=== PATIENT | female | born 1925 | race Caucasian/White ===

== ENCOUNTER 2017-04-14 15:33 | Inpatient (IN) | payer BC, MEDICARE, OTHER ==
[~2017-04-14] VITALS: Ht 165.1 cm; Wt 54.3 kg
[2017-04-14] MEDS ORDERED: SOD CHLORIDE 0.9% 500 ML IV STA (15:57)
[2017-04-14 16:25] LABS: ADD SCAN DIFF NO
[2017-04-14 16:29] LABS: ABNORMAL IP MESSAGE 1; HEMATOCRIT 36.2 % (37.0-47.0); HEMOGLOBIN 11.7 g/dl (12.0-16.0); MEAN CORPUSCULAR HEMOGLOBIN 28.7 pg (29.0-33.0); MEAN CORPUSCULAR HGB CONC 32.3 g/dl (32.0-37.0); MEAN CORPUSCULAR VOLUME 88.9 fl (82.0-101.0); MEAN PLATELET VOLUME 10.2 fl (7.4-10.4); PLATELET COUNT 304 10^3/UL (140-415); RED BLOOD COUNT 4.07 10^6/ul (4.20-5.40); RED CELL DISTRIBUTION WIDTH 15.9 % (11.5-14.5); WHITE BLOOD COUNT 22.4 10^3/ul (4.8-10.8)
--- NOTE | 2017-04-14 16:38 | RADRPT ---
PROCEDURE: CT Head without contrast. CLINICAL INDICATION: Altered mental status TECHNIQUE: Continuous axial CT images were obtained from the base of skull to the vertex. No cont rast was administered. The calculated radiation dose measures 720 mGy centimeters. The CTDI measures 45 mGy COMPARISON: No prior studies are available for comparison. FINDINGS: There is moderate diffuse cerebral volume loss. The ventricles are symmetric and normal in configur ation. There is no abnormal intra-axial or extra-axial fluid collection. There is no evidence of intracranial hemorrhage. There is a small focal area of dural thickening along the left anterior fa lx, measuring 10 mm CC by 4 mm transverse, with associated calcification. There are scattered areas of decreased attenuation in the supratentorial white matter, consistent wi th moderate small vessel ischemic changes. There is moderate atherosclerotic vascular calcification. The bony calvarium is intact. The orbital soft tissue contents are unremarkable. Paranasal sinuses appear clear. IMPRESSION: 1. Moderate age related cerebral volume loss. Moderate small vessel ischemic changes. 2. Moderate atherosclerotic vascular calcification. 3. Small focal dural thickening along the left anterior falx, 10 x 4 mm, which may reflect a small meningioma. 4. No mass effect or acute intracranial bleed identified. RPTAT: HBST .Manjit Ling MD, MD Date Time Electronically viewed and signed by .Manjit Ling MD, on 04/14/2017 16:37 .T/
--- NOTE | 2017-04-14 16:41 | RADRPT ---
PROCEDURE: XR Chest. CLINICAL INDICATION: 89-year-old with chest pain and possible GI bleed. TECHNIQUE: Single frontal view of the chest was obtained. COMPARISON: No. FINDINGS: The soft tissues are normal. There are degenerative osteophytes in the thoracic and upper lumbar sp ine. There are clips around the trachea at the thoracic inlet. The left ventricle is enlarged. Th e cardiomediastinal silhouette and hilar structures are normal. The pulmonary vasculature is equilib rated. There are vascular calcifications in the aortic arch. There are infiltrates and atelectasis in the left lower lobe silhouetting the left diaphragm. The left pleural effusion is suspected. Th e right costophrenic angle is normal. IMPRESSION: 1. Consolidative infiltrate and atelectasis in the left lower lobe with probable associated left ple ural effusion. 2. Status post thyroidectomy. 3. Atherosclerotic vascular disease. 4. Spondylosis of the thoracic spine. RPTAT:AAJJ Physician Leena Date Time Electronically viewed and signed by Maik Bello Physician on 04/14/2017 16:40 JEWEL/
[2017-04-14 16:48] LABS: INR 1.16; PROTIME 14.8 Sec (12.2-14.2); PT RATIO 1.2
[2017-04-14 16:49] LABS: PARTIAL THROMBOPLASTIN TIME 29.7 Sec (25.0-35.0)
[2017-04-14 16:52] LABS: ALBUMIN 4.2 g/dl (3.3-4.9); ALBUMIN/GLOBULIN RATIO 1.44; BILIRUBIN,INDIRECT 0.7 mg/dl (0-1.1); BILIRUBIN,TOTAL 0.7 mg/dl (0.2-1.3); CREATININE 2.3 mg/dl (0.44-1.00); TOTAL PROTEIN 7.1 g/dl (6.1-8.1)
[2017-04-14 17:09] LABS: TROPONIN-I 0.142 ng/ml (0.00-0.12)
[2017-04-14] MEDS ORDERED: FER325 PO (17:13)
[2017-04-14] MEDS ORDERED: MIRT30TA5 PO (17:13)
[2017-04-14] MEDS ORDERED: SENN-53 PO (17:14)
[2017-04-14] MEDS ORDERED: AMIO100T4 PO (17:14)
[2017-04-14] MEDS ORDERED: METF500T4 PO (17:15)
[2017-04-14] MEDS ORDERED: DONE10TA7 PO (17:15)
[2017-04-14] MEDS ORDERED: FURO20TA3 PO (17:15)
[2017-04-14] MEDS ORDERED: LEVO125T75 PO (17:16)
[2017-04-14] MEDS ORDERED: PRED5 PO (17:16)
[2017-04-14] MEDS ORDERED: SODIUM CHLORIDE 0.9% 1L BAG IV* STA ×2 (17:49→19:16)
[2017-04-14] MEDS ORDERED: CEFEPIME 2GM/50 ML (PMX) 50 ML IVPB STA (17:49)
[2017-04-14] MEDS ORDERED: VANCOMYCIN 1 GM (PMX) 250 ML IVPB STA (17:49)
[2017-04-14] MEDS ORDERED: ENOXAPARIN 40 MG/0.4 ML SYG SC ONE (18:00)
[2017-04-14 18:42] LABS: INR 1.16; PROTIME 14.8 Sec (12.2-14.2); PT RATIO 1.2
[2017-04-14 18:43] LABS: PARTIAL THROMBOPLASTIN TIME 31.3 Sec (25.0-35.0)
[2017-04-14 18:59] LABS: ADD UMIC YES; URINE BILIRUBIN (Dip) NEGATIVE (NEGATIVE); URINE BLOOD (Dip) 3+ (NEGATIVE); URINE GLUCOSE (Dip) NEGATIVE (NEGATIVE); URINE KETONES (Dip) NEGATIVE (NEGATIVE); URINE LEUKOCYTE ESTERASE (Dip) 3+ (NEGATIVE); URINE NITRITE (Dip) NEGATIVE (NEGATIVE); URINE TOTAL PROTEIN (Dip) 2+ (NEGATIVE); URINE UROBILINOGEN (Dip) 0.2 E.U./dL (0.1-1.0)
[2017-04-14] MEDS ORDERED: ACETAMINOPHEN 650 MG SUPP PR ONE (19:00)
[2017-04-14 19:10] LABS: URINE COLOR YELLOW (YELLOW)
[2017-04-14 19:15] LABS: BACTERIA,URINE MODERATE; TRANSITIONAL EPI CELLS,URINE MODERATE
--- NOTE | 2017-04-14 19:23 | ERA ---
ER Documentation Chief Complaint Date/Time DATE: 04/14/17 TIME: 19:17 Chief Complaint MORE ALETERD THAN NORMAL HPI This is a 89-year-old female who resides in a detention with very severe dementia according to the family who is here. The patient was seen here due to decreased level of consciousness. The patient is typically awake and alert and can watch TV and can talk to you. Apparently her mental status is a client over the period of 1 day is no other history is given such as she has had a fever cough vomiting diarrhea or other. On arrival the patient is in no acute distress she is not conversive. The patient is a DNR ROS All systems reviewed and are negative except as per history of present illness. Medications Home Meds Reported Medications Levothyroxine Sodium* (Levothyroxine Sodium*) 125 Mcg Tablet, 125 MCG PO BEFORE BREAKFAST, #30 TAB 04/14/17 Prednisone* (Prednisone*) 5 Mg Tab, 5 MG PO DAILY, TAB 04/14/17 Furosemide* (Furosemide*) 20 Mg Tablet, 20 MG PO DAILY, #60 TAB 04/14/17 Donepezil* (Donepezil*) 10 Mg Tablet, 10 MG PO DAILY, #30 TAB 04/14/17 Metformin Hcl* (Metformin Hcl*) 500 Mg Tablet, 500 MG PO WITH BREAKFAST DINNE, # 60 TAB 04/14/17 Sennosides* (Senna Lax*) 8.6 Mg Tablet, 2 TAB PO BID, TAB 04/14/17 Amiodarone Hcl* (Amiodarone Hcl*) 100 Mg Tablet, 100 MG PO BID, #30 TAB 04/14/17 Mirtazapine* (Mirtazapine*) 30 Mg Tablet, 30 MG PO DAILY, TAB 04/14/17 Ferrous Sulfate* (Ferrous Sulfate*) 325 Mg Tabec, 325 MG PO TID, TAB 04/14/17 Allergies Allergies: Coded Allergies: Penicillins (Unverified Allergy, Unknown, 04/14/17) Sulfa (Sulfonamide Antibiotics) (Unverified Allergy, Unknown, 04/14/17) PMhx/Soc Hx Cardiac Disorders: Yes (HTN, NE) Hx Miscellaneous Medical Probl: Yes (DM, THYROID, breast cancer) Smoking Status: Former smoker FmHx Unable to obtain due to mental status Physical Exam Vitals Vital Signs Date Time Temp Pulse Resp B/P Pulse Ox O2 Delivery O2 Flow Rate FiO2 04/14/17 18:43 101.6 95 24 109/80 95 Room Air 04/14/17 17:43 101.2 95 18 102/67 97 Room Air 04/14/17 16:06 Nasal Cannula 2 04/14/17 15:49 98.9 102 19 107/62 97 Physical Exam Const: Well-developed, well-nourished Head: Atraumatic, normocephalic Eyes: Normal Conjunctiva, PERRLA, EOMI, normal sclera, no nystagmus ENT: Normal External Ears, Nose and Mouth, moist mucus membranes. Neck: Full range of motion. No meningismus, no lymphadenopathy. Resp: Clear to auscultation bilaterally, no wheezing, rhonchi, rales Cardio: Regular rate and rhythm, no murmurs, S1 S2 present Abd: Soft, non tender x 4, non distended. Normal bowel sounds, no guarding or rebound, no pulsitile abdominal masses or bruits Skin: No petechiae or rashes, no ecchymosis , no maculopapular rash Back: No midline or flank tenderness Ext: No cyanosis, or edema, FROM x 4, normal inspection, neurovascularly intact x 4 Neur: Awake and alert eyes open and will look at you but will not talk will not follow commands Psych: Unable to assess] Result Diagram: 04/14/17 1605 04/14/17 1605 Results 24 hrs Laboratory Tests Test 04/14/17 16:05 04/14/17 17:55 04/14/17 18:19 White Blood Count 22.410^3/ul Red Blood Count 4.0710^6/ul Hemoglobin 11.7g/dl Hematocrit 36.2% Mean Corpuscular Volume 88.9fl Mean Corpuscular Hemoglobin 28.7pg Mean Corpuscular Hemoglobin Concent 32.3g/dl Red Cell Distribution Width 15.9% Platelet Count 16042^3/UL Mean Platelet Volume 10.2fl Neutrophils % 91.0% Band Neutrophils % 6.0% Lymphocytes % 2.0% Monocytes % 1.0% Neutrophils # 20.410^3/ul Lymphocytes # 0.410^3/ul Monocytes # 0.210^3/ul Prothrombin Time 14.8Sec 14.8Sec Prothrombin Time Ratio 1.2 1.2 INR International Normalized Ratio 1.16 1.16 Activated Partial Thromboplast Time 29.7Sec 31.3Sec Sodium Level 140mmol/L Potassium Level 4.0mmol/L Chloride Level 105mmol/L Carbon Dioxide Level 20mmol/L Anion Gap 19 Blood Urea Nitrogen 39mg/dl Creatinine 2.30mg/dl Glucose Level 171mg/dl Calcium Level 9.0mg/dl Total Bilirubin 0.7mg/dl Direct Bilirubin 0.00mg/dl Indirect Bilirubin 0.7mg/dl Aspartate Amino Transf (AST/SGOT) 50IU/L Alanine Aminotransferase (ALT/SGPT) 50IU/L Alkaline Phosphatase 143IU/L Troponin I 0.142ng/ml Total Protein 7.1g/dl Albumin 4.2g/dl Globulin 2.90g/dl Albumin/Globulin Ratio 1.44 Lactic Acid Level 3.3mmol/L Urine Color YELLOW Urine Clarity CLOUDY Urine pH 5.5 Urine Specific [place] 1.025 Urine Ketones NEGATIVE Urine Nitrite NEGATIVE Urine Bilirubin NEGATIVE Urine Urobilinogen 0.2 E.U./dL Urine Leukocyte Esterase 3+ Urine Microscopic RBC 5-10/HPF Urine Microscopic WBC >200/HPF Urine Transitional Epithelial Cells MODERATE Urine Bacteria MODERATE Urine Hemoglobin 3+ Urine Glucose NEGATIVE% Urine Total Protein 2+ Current Medications Medications (Trade) Dose Ordered Sig/Higinio Route PRN Reason Start Time Stop Time Status Last Admin Dose Admin Sodium Chloride (NS) 500 ml @ 500 mls/hr Q1H STAT IV 04/14/17 15:57 04/14/17 16:56 DC 04/14/17 17:16 Enoxaparin Sodium (Lovenox) 50 mg ONCE ONCE SC 04/14/17 18:00 04/14/17 18:01 DC 04/14/17 18:03 Sodium Chloride 1710 ml 1,710 ml BOLUS OVER 2 HOURS STAT IV* 04/14/17 17:49 04/14/17 17:52 DC 04/14/17 18:22 Vancomycin HCl 250 ml @ 125 mls/hr ONCE STAT IVPB 04/14/17 17:49 04/14/17 19:48 DC 04/14/17 19:00 Cefepime HCl (Maxipime 2gm/50 ml (Pmx)) 50 ml @ 100 mls/hr ONCE STAT IVPB 04/14/17 17:49 04/14/17 18:18 DC 04/14/17 18:21 Acetaminophen (Tylenol Supp) 650 mg ONCE ONCE MI 04/14/17 19:00 04/14/17 19:01 DC 04/14/17 19:00 Sodium Chloride (NS) 1,710 ml BOLUS OVER 2 HOURS STAT IV* 04/14/17 19:16 04/14/17 19:25 DC 04/14/17 20:11 Procedures/MDM PROCEDURE: CT Head without contrast. CLINICAL INDICATION: Altered mental status TECHNIQUE: Continuous axial CT images were obtained from the base of skull to the vertex. No contrast was administered. The calculated radiation dose measures 720 mGy centimeters. The CTDI measures 45 mGy COMPARISON: No prior studies are available for comparison. FINDINGS: There is moderate diffuse cerebral volume loss. The ventricles are symmetric and normal in configuration. There is no abnormal intra-axial or extra-axial fluid collection. There is no evidence of intracranial hemorrhage. There is a small focal area of dural thickening along the left anterior falx, measuring 10 mm CC by 4 mm transverse, with associated calcification. There are scattered areas of decreased attenuation in the supratentorial white matter, consistent with moderate small vessel ischemic changes. There is moderate atherosclerotic vascular calcification. The bony calvarium is intact. The orbital soft tissue contents are unremarkable. Paranasal sinuses appear clear. IMPRESSION: 1. Moderate age related cerebral volume loss. Moderate small vessel ischemic changes. 2. Moderate atherosclerotic vascular calcification. 3. Small focal dural thickening along the left anterior falx, 10 x 4 mm, which may reflect a small meningioma. 4. No mass effect or acute intracranial bleed identified. RPTAT: HBST .Manjit Ling MD, Date Time Electronically viewed and signed by .Manjit Ling MD, MD on 04/14/2017 16:37 .T/ CC: GISEL SEE DO PROCEDURE: XR Chest. CLINICAL INDICATION: 89-year-old with chest pain and possible GI bleed. TECHNIQUE: Single frontal view of the chest was obtained. COMPARISON: No. FINDINGS: The soft tissues are normal. There are degenerative osteophytes in the thoracic and upper lumbar spine. There are clips around the trachea at the thoracic inlet. The left ventricle is enlarged. The cardiomediastinal silhouette and hilar structures are normal. The pulmonary vasculature is equilibrated. There are vascular calcifications in the aortic arch. There are infiltrates and atelectasis in the left lower lobe silhouetting the left diaphragm. The left pleural effusion is suspected. The right costophrenic angle is normal. IMPRESSION: 1. Consolidative infiltrate and atelectasis in the left lower lobe with probable associated left pleural effusion. 2. Status post thyroidectomy. 3. Atherosclerotic vascular disease. 4. Spondylosis of the thoracic spine. RPTAT:AAJJ Physician Leena Date Time Electronically viewed and signed by Physician Leena on 04/14/2017 16:40 JM/ CC: GISEL SEE DO EKG: Rate/Rhythm: Normal sinus rhythm with PACs, left axis deviation, inverted T waves in lead I and aVL QRS, ST, QT: NORMAL MI, QRS, QT] Impression: Abnormal Admit MDM: Patient's infectious symptoms have not stabilized and the patient is at risk of rapid decompensation. The patient will be admitted for careful hydration, antibiotic therapy, and infectious source control. Severe Sepsis criteria: Infectious source: Pneumonia End organ damage indicated by: Elevated lactate Lactate > 2.0 mmol/L Hypotension (SBP < 90 or >40 mmHG drop or MAP < 65) Acute Resp Failure (sat < 92% w/o oxygen) Hazmat Tanker Driver > 2.0 INR > 1.5 Plt < 100 Bili > 2 Sepsis Management: Time of recognition of severe sepsis/septic shock: 1914 Within 3 hours of recognition: Blood cultures x 2 before broad-spectrum antibiotics: Yes 30 ml/kg NS bolus completed Initial lactate 3.3 Repeat lactate pending at this time Accepting Care Team Current data and ongoing care discussed. Time: Admitting Physician: Josesito Folding Machine Tender(s): Outstanding Data: None Critical Care Time: 35 Minutes Treatments/Evaluations: Close monitoring and treatment of unstable vital signs, cardiorespiratory, and neurologic status, while maintaining tight balance of fluid, respiratory, and cardiac interventions. This includes the administration of emergency fluid management while maintaining close respiratory support as well as the provision of immediate and broad-spectrum antibiotic therapy, while performing a simultaneous assessment for possible sources in order to direct targeted therapy. This time includes discussing the case with the patient and the patient's family. This time also includes the consideration for invasive and chemical support to prevent cardiopulmonary collapse. This time does not include all procedures stated elsewhere in this record. This time also includes reviewing old records, labs and radiological studies. This time includes examining and re-examining the patient. Additionally, this time also includes arranging care with admitting and consulting physicians. Patient is DNR and I did speak with the power of divorce attorney here and she also informing the patient is not to get blood pressure support, no heroic measures no intubation no CPR no defibrillation and is to be let go peacefully if her blood pressure does decline Departure Diagnosis: Primary Impression: Sepsis Qualified Code: A41.9 - Sepsis, due to unspecified organism Additional Impression: Pneumonia Qualified Code: J18.1 - Pneumonia of left lower lobe due to infectious organism Condition: GISEL Castellano DO Apr 14, 2017 19:23
[2017-04-14 19:58] LABS: LYMPHOCYTES # 0.4 10^3/ul (0.8-2.9); MONOCYTE # 0.2 10^3/ul (0.3-0.9); NEUTROPHIL # 20.4 10^3/ul (1.6-7.5)
[2017-04-14] MEDS ORDERED: SOD CHLORIDE 0.9% 1,000 ML IV SCH ×2 (20:29→20:33)
[2017-04-14] MEDS ORDERED: ONDANSETRON 4 MG INJ IV PRN ×2 (20:30→21:00)
[2017-04-14] MEDS ORDERED: NACL 0.9% 3 ML SYG IV SCH (20:30)
[2017-04-14] MEDS ORDERED: ACETAMINOPHEN 325 MG TAB PO PRN ×2 (20:30→21:00)
[2017-04-14] MEDS ORDERED: VANCOMYCIN IV PER PHARMACY XX SCH (21:00)
[2017-04-14 22:27] VITALS: TEMP 98.8
[2017-04-14 22:42] LABS: CK-MB 0.58 ng/ml (0.0-2.4); TROPONIN-I 0.128 ng/ml (0.00-0.12)
[2017-04-14 22:45] VITALS: BP 143/73; PULSE 81; RESP 16
[2017-04-14] MEDS: HEPARIN 5,000 UNIT/0.5 ML VIAL SC SCH (23:46)
[2017-04-15] VITALS (11 sets, daily range): BP systolic 119–176; BP diastolic 59–117; PULSE 63–83; RESP 15–20; Ht 165.1 cm; Wt 54.3 kg
--- NOTE | 2017-04-15 00:37 | HP ---
Date/Time of Note Date/Time of Note DATE: 04/15/17 TIME: 00:37 Assessment/Plan VTE Prophylaxis VTE Prophylaxis Intervention: heparin Assessment/Plan Chief Complaint/Hosp Course This is a 89-year-old female being admitted to the telemetry floor for: #1 severe sepsis: Fever of 101.6, respirations of 24, white blood cell count of 22 and 6% bands, lactic acid 3.8 and a source of infection of pneumonia and urinary tract infection. Will provide IV hydration pressure support. Broad- spectrum antibiotics of Vanco and cefepime. Though the patient is a DNR, at the present time would like to keep her in telemetry for closer observation and monitoring. #2 Community-acquired pneumonia: Patient does live in a assisted which could make her susceptible to plethora pathogens. Continue current broad- spectrum antibiotic coverage. Will adjust medications as clinically indicated. I would like to avoid fluoroquinolones at this time secondary to her cardiac history and risk of tendinopathy in the elderly. #3 urinary tract infection: Urinalysis shows positive leukoesterase, currently on broad-spectrum antibiotics. #4 renal insufficiency: Most likely chronic however there are not any previous creatinine values to compare to. Patient's creatinine clearance calculated is approximately 14. Will renally dose the antibiotics. Provide IV fluid hydration. #5 elevated troponins: EKG does not show any overt ST or T-wave abnormalities, patient denies any chest pain at this time. This could be possibly related to demand versus underlying kidney disease. We will continue to monitor. #6 diabetes mellitus: We will hold home medications put on insulin sliding scale. #7 hypothyroidism: Continue home Synthroid #8 Suspected history of arrhythmia: Continue amiodarone #9 dementia: Continue donepezil #10 DVT and GI prophylaxis: Heparin, Protonix As per the ED physician and documentation, power of commercial litigation attorney for the patient did confirm patient's DNR CODE STATUS. Patient also is to not be on any artificial blood pressure support should the need arise. Please see ED documentation for further information. Problems: HPI/ROS Admit Date/Time Admit Date/Time Apr 14, 2017 at 20:34 Hx of Present Illness If complaint: decline in mental status. This is a 89-year-old female who resides in a assisted with very severe dementia according to the family who is here. The patient was seen here due to decreased level of consciousness. The patient is typically awake and alert and can watch TV and can talk to you. Apparently her mental status has declined over the period of 1 day is no other history is given such as she has had a fever cough vomiting diarrhea or other. On arrival the patient is in no acute distress she is not conversive. The patient is a DNR. Allergies: Penicillins, sulfa Medications: See MAR ROS Subjective hx not possible: pt non-verbal, pt critical PMH/Family/Social Past Medical History Hypertension, diabetes mellitus, thyroid disease, history of breast cancer, history of past PR Past Surgical History Past Surgical Hx: noncontributory, other (Unable to provide) Family History Significant Family History: no pertinent family hx Social History Alcohol Use: none Smoking Status: Former smoker Drug Use: none Exam/Review of Systems Vital Signs Vitals Vital Signs Date Time Temp Pulse Resp B/P Pulse Ox O2 Delivery O2 Flow Rate FiO2 04/15/17 00:00 78 04/14/17 22:45 16 143/73 97 Room Air 04/14/17 22:27 98.8 04/14/17 16:06 2 Exam Exam General: Patient is asleep she appears well-developed does not appear in any acute distress HEENT: Atraumatic, normocephalic. The pupils are equal, round and reactive. Neck: Supple with full range of motion. No rigidity or meningismus Chest: Nontender Lungs: Coarse breath sounds at the lower left lung field Heart: Normal S1-S2, Regular rhythm and rate. Abdomen: Soft , nontender, nondistended , bowel sounds are present. No guarding no rebound tenderness , Extremities: Normal to inspection, no edema no cyanosis Neurologic: Awake and alert eyes open and will look at you but will not talk, will not follow commands. Additional Comments PROCEDURE: CT Head without contrast. CLINICAL INDICATION: Altered mental status TECHNIQUE: Continuous axial CT images were obtained from the base of skull to the vertex. No contrast was administered. The calculated radiation dose measures 720 mGy centimeters. The CTDI measures 45 mGy COMPARISON: No prior studies are available for comparison. FINDINGS: There is moderate diffuse cerebral volume loss. The ventricles are symmetric and normal in configuration. There is no abnormal intra-axial or extra-axial fluid collection. There is no evidence of intracranial hemorrhage. There is a small focal area of dural thickening along the left anterior falx, measuring 10 mm CC by 4 mm transverse, with associated calcification. There are scattered areas of decreased attenuation in the supratentorial white matter, consistent with moderate small vessel ischemic changes. There is moderate atherosclerotic vascular calcification. The bony calvarium is intact. The orbital soft tissue contents are unremarkable. Paranasal sinuses appear clear. IMPRESSION: 1. Moderate age related cerebral volume loss. Moderate small vessel ischemic changes. 2. Moderate atherosclerotic vascular calcification. 3. Small focal dural thickening along the left anterior falx, 10 x 4 mm, which may reflect a small meningioma. 4. No mass effect or acute intracranial bleed identified. RPTAT: HBST .Manjit Ling MD, Date Time Electronically viewed and signed by .Manjit Ling MD, on 04/14/2017 16:37 .T/ CC: GISEL SEE DO PROCEDURE: XR Chest. CLINICAL INDICATION: 89-year-old with chest pain and possible GI bleed. TECHNIQUE: Single frontal view of the chest was obtained. COMPARISON: No. FINDINGS: The soft tissues are normal. There are degenerative osteophytes in the thoracic and upper lumbar spine. There are clips around the trachea at the thoracic inlet. The left ventricle is enlarged. The cardiomediastinal silhouette and hilar structures are normal. The pulmonary vasculature is equilibrated. There are vascular calcifications in the aortic arch. There are infiltrates and atelectasis in the left lower lobe silhouetting the left diaphragm. The left pleural effusion is suspected. The right costophrenic angle is normal. IMPRESSION: 1. Consolidative infiltrate and atelectasis in the left lower lobe with probable associated left pleural effusion. 2. Status post thyroidectomy. 3. Atherosclerotic vascular disease. 4. Spondylosis of the thoracic spine. RPTAT:AAJJ Physician Leena Date Time Electronically viewed and signed by Physician Leena on 04/14/2017 16:40 JM/ CC: GISEL ESE DO EKG: Rate/Rhythm: Normal sinus rhythm with PACs, left axis deviation, inverted T waves in lead I and aVL QRS, ST, QT: NORMAL [place], QRS, QT] As per ED physician documentation Labs Result Diagram: 04/14/17 1605 04/14/17 1605 Medications Medications Current Medications Sodium Chloride (NS) 1,000 ml @ 60 mls/hr [id number] IV Last administered on 23:42; Admin Dose 60 MLS/HR; Start 04/14/17 at 20:29 Ondansetron HCl (Zofran Inj) 4 mg Q6H PRN IV NAUSEA AND/OR VOMITING; Start 04/14 at 20:30 Acetaminophen (Tylenol Tab) 650 mg Q6H PRN PO PAIN LEVEL 1-3 OR FEVER; Start at 20:30 Pantoprazole (Protonix Iv) 40 mg DAILY@06 IV ; Start 04/15/17 at 06:00 Heparin Sodium (Porcine) (Heparin (5000 Units/0.5 ml)) 5,000 unit Q8 SC Last administered on 04/14/17 23:46; Admin Dose 5,000 UNIT; Start 04/14/17 at 22:00 YAHAIRA CLAROS Apr 15, 2017 00:37
[2017-04-15] MEDS ORDERED: PANTOPRAZOLE 40 MG INJ IV SCH (06:00)
[2017-04-15] MEDS: LEVOTHYROXINE 125 MCG TAB PO SCH (06:19)
[2017-04-15] MEDS: HEPARIN 5,000 UNIT/0.5 ML VIAL SC SCH ×3 (06:26→21:27)
[2017-04-15 06:44] LABS: ADD SCAN DIFF NO
[2017-04-15 06:59] LABS: ABNORMAL IP MESSAGE 1; BASOPHILS % 0.1 % (0.0-2.0); EOSINOPHILS % 0.1 % (0.0-7.0); HEMATOCRIT 28.8 % (37.0-47.0); HEMOGLOBIN 9.2 g/dl (12.0-16.0); LYMPHOCYTES # 0.5 10^3/ul (0.8-2.9); LYMPHOCYTES % 3.3 % (15.0-51.0); MEAN CORPUSCULAR HEMOGLOBIN 28.5 pg (29.0-33.0); MEAN CORPUSCULAR HGB CONC 31.9 g/dl (32.0-37.0); MEAN CORPUSCULAR VOLUME 89.2 fl (82.0-101.0); MEAN PLATELET VOLUME 10.2 fl (7.4-10.4); MONOCYTE # 0.5 10^3/ul (0.3-0.9); MONOCYTES % 3.2 % (0.0-11.0); NEUTROPHIL # 15.2 10^3/ul (1.6-7.5); NEUTROPHILS % 92.4 % (39.0-77.0); PLATELET COUNT 227 10^3/UL (140-415); RED BLOOD COUNT 3.23 10^6/ul (4.20-5.40); RED CELL DISTRIBUTION WIDTH 15.7 % (11.5-14.5); WHITE BLOOD COUNT 16.4 10^3/ul (4.8-10.8)
[2017-04-15] MEDS ORDERED: GLUCOSE GEL 15 GRAM TUBE BUCCAL PRN (07:00)
[2017-04-15] MEDS ORDERED: GLUCAGON 1 MG INJ IM PRN (07:00)
[2017-04-15] MEDS ORDERED: DEXTROSE 50% 50 ML SYRINGE IV PRN ×2 (07:00)
[2017-04-15] MEDS ORDERED: GLUCOSE GEL 15 GRAM TUBE PO PRN ×2 (07:00)
[2017-04-15 07:16] LABS: ALBUMIN 3.1 g/dl (3.3-4.9); ALBUMIN/GLOBULIN RATIO 1.24; BILIRUBIN,INDIRECT 0.4 mg/dl (0-1.1); BILIRUBIN,TOTAL 0.4 mg/dl (0.2-1.3); CALCIUM 7.8 mg/dl (8.4-10.2); CREATININE 2.15 mg/dl (0.44-1.00); POTASSIUM 3.8 mmol/L (3.5-5.1); TOTAL PROTEIN 5.6 g/dl (6.1-8.1)
[2017-04-15] MEDS: INSULIN ASPART [NOVOLOG] 3 ML PEN SC SCH ×4 (07:55→21:00)
[2017-04-15 08:42] LABS: CK-MB 1.13 ng/ml (0.0-2.4); TROPONIN-I 0.123 ng/ml (0.00-0.12)
[2017-04-15] MEDS: predniSONE 5 MG TAB PO SCH (09:00)
[2017-04-15] MEDS: AMIODARONE 200 MG TAB PO SCH ×2 (09:00→21:21)
[2017-04-15] MEDS: FERROUS SULFATE (EC) 325 MG TAB PO SCH ×3 (09:00→21:21)
[2017-04-15] MEDS: MIRTAZAPINE 15 MG TAB PO SCH (09:00)
[2017-04-15] MEDS: DONEPEZIL 10 MG TAB PO SCH (09:00)
[2017-04-15] MEDS: SENNA TAB PO SCH ×2 (09:00→21:20)
[2017-04-15 09:56] LABS: BURR CELLS OCCASIONAL; POIKILOCYTOSIS 1+
--- NOTE | 2017-04-15 11:23 | PN ---
Date/Time of Note Date/Time of Note DATE: 04/15/17 TIME: 11:23 Assessment/Plan VTE Prophylaxis VTE Prophylaxis Intervention: SCD's Lines/Catheters Urinary Cath still in place: Yes Reason Cath still needed: other (indicate) Assessment/Plan Assessment/Plan 89 yo F with DM, hypothyroid, facility resident admitted for AMS 2/2 severe sepsis. #sepsis: source lung v urine cont ceftriaxone/azithro pending further culture data urine/blood cultures in process check sputum culture check urine strep Ag #NSTEMI: elevated trop 2/2 demand, already downtrending consider cardiology involvement prior to discharge #acute renal insufficiency: suspect prenreal 2/2 sepsis cont IVFs #DM2: hold home meds, SSI #hypothyroid: cont synthroid #h/o arrhythmia? cont home amio #dementia: cont donezepil #prophx: SCDs discontinue becerril Subjective 24 Hr Interval Summary Free Text/Dictation Pt asking where she is this AM Exam/Review of Systems Vital Signs Vitals Vital Signs Date Time Temp Pulse Resp B/P Pulse Ox O2 Delivery O2 Flow Rate FiO2 04/15/17 08:48 83 04/15/17 08:30 2.0 04/15/17 08:00 99.3 16 122/59 97 04/14/17 22:45 Room Air Intake and Output 04/14/17 04/14/17 04/15/17 15:00 23:00 07:00 Output Total 200 ml Balance -200 ml Exam nad lungs clear no mrg abd soft becerril draining yellow urine no le edema Results Result Diagram: 04/15/17 0600 04/15/17 0600 Results 24 hrs Laboratory Tests Test 04/14/17 16:05 04/14/17 17:55 04/14/17 18:19 04/14/17 21:30 White Blood Count 22.4 H Red Blood Count 4.07 L Hemoglobin 11.7 L Hematocrit 36.2 L Mean Corpuscular Volume 88.9 Mean Corpuscular Hemoglobin 28.7 L Mean Corpuscular Hemoglobin Concent 32.3 Red Cell Distribution Width 15.9 H Platelet Count 304 Mean Platelet Volume 10.2 Neutrophils % 91.0 H Band Neutrophils % 6.0 H Lymphocytes % 2.0 L Monocytes % 1.0 Neutrophils # 20.4 H Lymphocytes # 0.4 L Monocytes # 0.2 L Prothrombin Time 14.8 H 14.8 H Prothrombin Time Ratio 1.2 1.2 INR International Normalized Ratio 1.16 1.16 Activated Partial Thromboplast Time 29.7 31.3 Sodium Level 140 Potassium Level 4.0 Chloride Level 105 Carbon Dioxide Level 20 L Anion Gap 19 H Blood Urea Nitrogen 39 H Creatinine 2.30 H Glucose Level 171 Calcium Level 9.0 Total Bilirubin 0.7 Direct Bilirubin 0.00 Indirect Bilirubin 0.7 Aspartate Amino Transf (AST/SGOT) 50 H Alanine Aminotransferase (ALT/SGPT) 50 Alkaline Phosphatase 143 H Troponin I 0.142 *H 0.128 *H Total Protein 7.1 Albumin 4.2 Globulin 2.90 Albumin/Globulin Ratio 1.44 Lactic Acid Level 3.3 H 1.9 Urine Color YELLOW Urine Clarity CLOUDY Urine pH 5.5 Urine Specific [place] 1.025 Urine Ketones NEGATIVE Urine Nitrite NEGATIVE Urine Bilirubin NEGATIVE Urine Urobilinogen 0.2 E.U./dL Urine Leukocyte Esterase 3+ H Urine Microscopic RBC 5-10 Urine Microscopic WBC >200 Urine Transitional Epithelial Cells MODERATE Urine Bacteria MODERATE Urine Hemoglobin 3+ H Urine Glucose NEGATIVE Urine Total Protein 2+ H Creatine Kinase 40 Creatine Kinase Index 1.5 Creatinine Kinase MB (Mass) 0.58 Test 04/15/17 05:00 04/15/17 06:00 04/15/17 08:48 Creatine Kinase 52 Creatine Kinase Index 2.2 Creatinine Kinase MB (Mass) 1.13 Troponin I 0.123 *H White Blood Count 16.4 #H Red Blood Count 3.23 #L Hemoglobin 9.2 #L Hematocrit 28.8 #L Mean Corpuscular Volume 89.2 Mean Corpuscular Hemoglobin 28.5 L Mean Corpuscular Hemoglobin Concent 31.9 L Red Cell Distribution Width 15.7 H Platelet Count 227 # Mean Platelet Volume 10.2 Neutrophils % 92.4 H Lymphocytes % 3.3 L Monocytes % 3.2 Eosinophils % 0.1 Basophils % 0.1 Nucleated Red Blood Cells % 0.0 Neutrophils # 15.2 H Lymphocytes # 0.5 L Monocytes # 0.5 Eosinophils # 0.0 Basophils # 0.0 Nucleated Red Blood Cells # 0.0 Poikilocytosis 1+ Sodium Level 139 Potassium Level 3.8 Chloride Level 111 H Carbon Dioxide Level 20 L Anion Gap 12 # Blood Urea Nitrogen 37 H Creatinine 2.15 H Glucose Level 120 # Calcium Level 7.8 L Total Bilirubin 0.4 Direct Bilirubin 0.00 Indirect Bilirubin 0.4 Aspartate Amino Transf (AST/SGOT) 32 Alanine Aminotransferase (ALT/SGPT) 41 Alkaline Phosphatase 109 Total Protein 5.6 #L Albumin 3.1 #L Globulin 2.50 Albumin/Globulin Ratio 1.24 Bedside Glucose 149 Medications Medications Current Medications Sodium Chloride (NS) 1,000 ml @ 60 mls/hr [id number] IV Last administered on 23:42; Admin Dose 60 MLS/HR; Start 04/14/17 at 20:29 Ondansetron HCl (Zofran Inj) 4 mg Q6H PRN IV NAUSEA AND/OR VOMITING; Start 04/14 at 20:30 Acetaminophen (Tylenol Tab) 650 mg Q6H PRN PO PAIN LEVEL 1-3 OR FEVER; Start at 20:30 Pantoprazole (Protonix Iv) 40 mg DAILY@06 IV Last administered on 04/15/17 06: 49; Admin Dose 40 MG; Start 04/15/17 at 06:00 Heparin Sodium (Porcine) (Heparin (5000 Units/0.5 ml)) 5,000 unit Q8 SC Last administered on 04/15/17 06:26; Admin Dose 5,000 UNIT; Start 04/14/17 at 22:00 Amiodarone HCl (Cordarone) 100 mg BID PO ; Start 04/15/17 at 09:00 Donepezil HCl (Aricept) 10 mg DAILY PO ; Start 04/15/17 at 09:00 Ferrous Sulfate (Ferrous Sulfate (Ec)) 325 mg TID PO ; Start 04/15/17 at 09:00 Mirtazapine (Remeron) 30 mg DAILY PO ; Start 04/15/17 at 09:00 Prednisone (Prednisone) 5 mg DAILY PO ; Start 04/15/17 at 09:00 Senna (Senokot) 2 tab BID PO ; Start 04/15/17 at 09:00 Diagnostic Test (Pha) (Accu-Chek) 1 ea 02 XX ; Start 04/16/17 at 02:00 Miscellaneous Information 1 ea NOTE XX ; Start 04/15/17 at 07:00 Glucose (Glutose) 15 gm Q15M PRN PO DECREASED GLUCOSE; Start 04/15/17 at 07:00 Glucose (Glutose) 22.5 gm Q15M PRN PO DECREASED GLUCOSE; Start 04/15/17 at 07:00 Dextrose (D50w Syringe) 25 ml Q15M PRN IV DECREASED GLUCOSE; Start 04/15/17 at 07:00 Dextrose (D50w Syringe) 50 ml Q15M PRN IV DECREASED GLUCOSE; Start 04/15/17 at 07:00 Glucagon (Glucagen) 1 mg Q15M PRN IM DECREASED GLUCOSE; Start 04/15/17 at 07:00 Glucose (Glutose) 15 gm Q15M PRN BUCCAL DECREASED GLUCOSE; Start 04/15/17 at 07: 00 BRIDGETTE RICH MD Apr 15, 2017 11:23
[2017-04-15] MEDS ORDERED: AZITHROMYCIN 250 MG TAB PO ONE (11:30)
[2017-04-15] MEDS ORDERED: CEFTRIAXONE 2 GM/50 ML (PMX) 50 ML IVPB SCH (13:00)
[2017-04-15] MEDS: SOD CHLORIDE 0.9% 1,000 ML IV SCH (13:10)
[2017-04-16] VITALS (12 sets, daily range): BP systolic 118–140; BP diastolic 62–77; PULSE 62–69; RESP 15–20
[2017-04-16] MEDS: ACCU-CHEK XX SCH (00:01)
[2017-04-16] MEDS: SOD CHLORIDE 0.9% 1,000 ML IV SCH ×3 (01:28→18:00)
[2017-04-16] MEDS: HEPARIN 5,000 UNIT/0.5 ML VIAL SC SCH ×3 (06:07→22:19)
[2017-04-16] MEDS: LEVOTHYROXINE 125 MCG TAB PO SCH (07:00)
[2017-04-16 07:12] LABS: ADD SCAN DIFF NO
[2017-04-16 07:15] LABS: ABNORMAL IP MESSAGE 1; HEMATOCRIT 26.2 % (37.0-47.0); HEMOGLOBIN 8.3 g/dl (12.0-16.0); MEAN CORPUSCULAR HEMOGLOBIN 28.4 pg (29.0-33.0); MEAN CORPUSCULAR HGB CONC 31.7 g/dl (32.0-37.0); MEAN CORPUSCULAR VOLUME 89.7 fl (82.0-101.0); MEAN PLATELET VOLUME 10.4 fl (7.4-10.4); PLATELET COUNT 190 10^3/UL (140-415); RED BLOOD COUNT 2.92 10^6/ul (4.20-5.40); RED CELL DISTRIBUTION WIDTH 15.9 % (11.5-14.5); WHITE BLOOD COUNT 11.2 10^3/ul (4.8-10.8)
[2017-04-16 07:43] LABS: CALCIUM 7.6 mg/dl (8.4-10.2); CREATININE 1.73 mg/dl (0.44-1.00); POTASSIUM 3.6 mmol/L (3.5-5.1)
[2017-04-16] MEDS: INSULIN ASPART [NOVOLOG] 3 ML PEN SC SCH ×4 (07:55→21:00)
[2017-04-16] MEDS: AMIODARONE 200 MG TAB PO SCH ×2 (09:00→22:18)
[2017-04-16] MEDS: DONEPEZIL 10 MG TAB PO SCH (09:00)
[2017-04-16] MEDS ORDERED: AZITHROMYCIN 250 MG TAB PO SCH (09:00)
[2017-04-16] MEDS: MIRTAZAPINE 15 MG TAB PO SCH (09:00)
[2017-04-16] MEDS: predniSONE 5 MG TAB PO SCH (09:00)
[2017-04-16] MEDS: FERROUS SULFATE (EC) 325 MG TAB PO SCH ×3 (09:00→22:17)
[2017-04-16] MEDS: SENNA TAB PO SCH ×2 (09:00→22:17)
[2017-04-16 09:10] LABS: MONOCYTE # 0.2 10^3/ul (0.3-0.9); NEUTROPHIL # 10.2 10^3/ul (1.6-7.5)
[2017-04-16 09:11] LABS: PLATELET ESTIMATE PLT APPEAR ADEQUATE
--- NOTE | 2017-04-16 12:58 | PN ---
Date/Time of Note Date/Time of Note DATE: 04/16/17 TIME: 12:58 Assessment/Plan VTE Prophylaxis VTE Prophylaxis Intervention: SCD's Lines/Catheters IV Catheter Type (from Nrsg): Peripheral IV Urinary Cath still in place: No Assessment/Plan Assessment/Plan 89 yo F with DM, hypothyroid, facility resident admitted for AMS 2/2 severe sepsis. #sepsis: source lung v urine. Suspect urine given culture data briefly discussed with [employer] who advised 7 additional days of cefepime. Ordered urine/blood cultures in process check sputum culture check urine strep Ag #NSTEMI: elevated trop 2/2 demand, already downtrending consider cardiology involvement prior to discharge #acute renal insufficiency: suspect prenreal 2/2 sepsis cont IVFs, improving #DM2: hold home meds, SSI #hypothyroid: cont synthroid #h/o arrhythmia? cont home amio #dementia: cont donezepil #prophx: SCDs dispo pending improvement in Cr also possible discussion with cardiology re NSTEMI Subjective 24 Hr Interval Summary Free Text/Dictation Pt much more awake today. Able to respond to questions Exam/Review of Systems Vital Signs Vitals Vital Signs Date Time Temp Pulse Resp B/P Pulse Ox O2 Delivery O2 Flow Rate FiO2 04/16/17 12:09 62 04/16/17 11:12 98.0 16 118/62 94 04/16/17 08:00 2.0 04/15/17 21:11 Nasal Cannula Intake and Output 04/15/17 04/15/17 04/16/17 15:00 23:00 07:00 Intake Total 150 ml 50 ml Output Total 50 ml Balance 100 ml 50 ml Results Result Diagram: 04/16/17 0615 04/16/17 0615 Results 24 hrs Laboratory Tests Test 04/15/17 18:53 04/15/17 21:43 04/16/17 06:15 04/16/17 08:10 Bedside Glucose 105 101 106 White Blood Count 11.2 #H Red Blood Count 2.92 L Hemoglobin 8.3 L Hematocrit 26.2 L Mean Corpuscular Volume 89.7 Mean Corpuscular Hemoglobin 28.4 L Mean Corpuscular Hemoglobin Concent 31.7 L Red Cell Distribution Width 15.9 H Platelet Count 190 Mean Platelet Volume 10.4 Neutrophils % 91.0 H Band Neutrophils % 6.0 H Monocytes % 2.0 Metamyelocytes % 1.0 H Neutrophils # 10.2 H Monocytes # 0.2 L Metamyelocytes # 0.1 Platelet Estimate PLT APPEAR ADEQUATE Sodium Level 140 Potassium Level 3.6 Chloride Level 111 H Carbon Dioxide Level 16 L Anion Gap 17 H Blood Urea Nitrogen 38 H Creatinine 1.73 H Glucose Level 90 Hemoglobin A1c 5.8 Calcium Level 7.6 L Medications Medications Current Medications Ondansetron HCl (Zofran Inj) 4 mg Q6H PRN IV NAUSEA AND/OR VOMITING; Start 04/14 at 20:30 Acetaminophen (Tylenol Tab) 650 mg Q6H PRN PO PAIN LEVEL 1-3 OR FEVER; Start at 20:30 Heparin Sodium (Porcine) (Heparin (5000 Units/0.5 ml)) 5,000 unit Q8 SC Last administered on 04/16/17 06:07; Admin Dose 5,000 UNIT; Start 04/14/17 at 22:00 Amiodarone HCl (Cordarone) 100 mg BID PO Last administered on 04/15/17 21:21; Admin Dose 100 MG; Start 04/15/17 at 09:00 Donepezil HCl (Aricept) 10 mg DAILY PO ; Start 04/15/17 at 09:00 Ferrous Sulfate (Ferrous Sulfate (Ec)) 325 mg TID PO Last administered on 21:21; Admin Dose 325 MG; Start 04/15/17 at 09:00 Mirtazapine (Remeron) 30 mg DAILY PO ; Start 04/15/17 at 09:00 Prednisone (Prednisone) 5 mg DAILY PO ; Start 04/15/17 at 09:00 Senna (Senokot) 2 tab BID PO Last administered on 04/15/17 21:20; Admin Dose 2 TAB; Start 04/15/17 at 09:00 Diagnostic Test (Pha) (Accu-Chek) 1 ea 02 XX ; Start 04/16/17 at 02:00 Miscellaneous Information 1 ea NOTE XX ; Start 04/15/17 at 07:00 Glucose (Glutose) 15 gm Q15M PRN PO DECREASED GLUCOSE; Start 04/15/17 at 07:00 Glucose (Glutose) 22.5 gm Q15M PRN PO DECREASED GLUCOSE; Start 04/15/17 at 07:00 Dextrose (D50w Syringe) 25 ml Q15M PRN IV DECREASED GLUCOSE; Start 04/15/17 at 07:00 Dextrose (D50w Syringe) 50 ml Q15M PRN IV DECREASED GLUCOSE; Start 04/15/17 at 07:00 Glucagon (Glucagen) 1 mg Q15M PRN IM DECREASED GLUCOSE; Start 04/15/17 at 07:00 Glucose 15 gm 15 gm Q15M PRN BUCCAL DECREASED GLUCOSE; Start 04/15/17 at 07:00 Ceftriaxone Sodium (Rocephin) 50 ml @ 100 mls/hr Q24H IVPB Last administered on 04/15/17 13:09; Admin Dose 100 MLS/HR; Start 04/15/17 at 13:00 Azithromycin 250 mg 250 mg DAILY PO ; Start 04/16/17 at 09:00 Sodium Chloride (NS) 1,000 ml @ 100 mls/hr Q10H IV Last administered on 11:42; Admin Dose 100 MLS/HR; Start 04/15/17 at 12:00 Procedures Procedures resp culture nl roberto, urine culture with PSAR R to quinolones Cr better BRIDGETTE RICH MD Apr 16, 2017 12:58
[2017-04-16] MEDS: CEFEPIME 2GM/50 ML (PMX) 50 ML IVPB SCH (18:00)
[2017-04-17] VITALS (12 sets, daily range): BP systolic 121–141; BP diastolic 57–80; PULSE 58–64; RESP 17–20
[2017-04-17] MEDS: ACCU-CHEK XX SCH (02:00)
[2017-04-17] MEDS: SOD CHLORIDE 0.9% 1,000 ML IV SCH ×2 (04:00→14:00)
[2017-04-17] MEDS: HEPARIN 5,000 UNIT/0.5 ML VIAL SC SCH ×3 (05:42→23:22)
[2017-04-17] MEDS: INSULIN ASPART [NOVOLOG] 3 ML PEN SC SCH ×4 (07:55→20:56)
[2017-04-17 07:59] LABS: CALCIUM 7.8 mg/dl (8.4-10.2); CREATININE 2.07 mg/dl (0.44-1.00); POTASSIUM 3.7 mmol/L (3.5-5.1)
[2017-04-17] MEDS: AMIODARONE 200 MG TAB PO SCH ×2 (08:30→20:52)
[2017-04-17] MEDS: predniSONE 5 MG TAB PO SCH (08:30)
[2017-04-17] MEDS: MIRTAZAPINE 15 MG TAB PO SCH (08:30)
[2017-04-17] MEDS: SENNA TAB PO SCH ×3 (08:31→21:00)
[2017-04-17] MEDS: LEVOTHYROXINE 125 MCG TAB PO SCH (08:31)
[2017-04-17] MEDS: DONEPEZIL 10 MG TAB PO SCH (08:31)
[2017-04-17] MEDS: FERROUS SULFATE (EC) 325 MG TAB PO SCH ×3 (08:31→20:52)
[2017-04-17 12:55] LABS: ADD SCAN DIFF NO
[2017-04-17 12:57] LABS: ABNORMAL IP MESSAGE 1; BASOPHILS % 0.2 % (0.0-2.0); EOSINOPHILS % 0.1 % (0.0-7.0); HEMATOCRIT 26.5 % (37.0-47.0); HEMOGLOBIN 8.3 g/dl (12.0-16.0); LYMPHOCYTES # 0.4 10^3/ul (0.8-2.9); LYMPHOCYTES % 3.3 % (15.0-51.0); MEAN CORPUSCULAR HEMOGLOBIN 28.7 pg (29.0-33.0); MEAN CORPUSCULAR HGB CONC 31.3 g/dl (32.0-37.0); MEAN CORPUSCULAR VOLUME 91.7 fl (82.0-101.0); MEAN PLATELET VOLUME 10.4 fl (7.4-10.4); MONOCYTE # 0.5 10^3/ul (0.3-0.9); MONOCYTES % 4.7 % (0.0-11.0); NEUTROPHIL # 9.9 10^3/ul (1.6-7.5); NEUTROPHILS % 90.8 % (39.0-77.0); PLATELET COUNT 191 10^3/UL (140-415); RED BLOOD COUNT 2.89 10^6/ul (4.20-5.40); RED CELL DISTRIBUTION WIDTH 16.1 % (11.5-14.5); WHITE BLOOD COUNT 10.9 10^3/ul (4.8-10.8)
--- NOTE | 2017-04-17 13:50 | PN ---
Date/Time of Note Date/Time of Note DATE: 04/17/17 TIME: 13:46 Assessment/Plan VTE Prophylaxis VTE Prophylaxis Intervention: SCD's Lines/Catheters IV Catheter Type (from [facility]): Peripheral IV Urinary Cath still in place: No Assessment/Plan Chief Complaint/Hosp Course Assessment/Plan: 89 yo F with DM, hypothyroid, facility resident admitted for AMS 2/2 severe sepsis. 1. sepsis: source lung v urine. Suspect urine given culture data (+ Pseudomonas) - continue cefepime abx, needs 6 more days - f/u final urine/blood cultures in process - f/u check sputum culture and urine strep Ag - PT eval 2. NSTEMI: elevated trop 2/2 demand, already downtrending - will check another trop today, consider cardiology involvement prior to discharge 3. acute renal insufficiency: suspect prenreal 2/2 sepsis - still elevated Cr - cont IVFs, get renal consult. 4. DM2: hold home meds, SSI 5. hypothyroid: cont synthroid 6. h/o arrhythmia? cont home amio 7. dementia: cont donezepil 8. prophx: SCDs dispo pending improvement in Cr also possible discussion with cardiology re NSTEMI Problems: Subjective 24 Hr Interval Summary Free Text/Dictation Pt had no acute events overnight. Exam/Review of Systems Vital Signs Vitals Vital Signs Date Time Temp Pulse Resp B/P Pulse Ox O2 Delivery O2 Flow Rate FiO2 04/17/17 12:42 64 04/17/17 11:33 98.9 18 131/67 96 04/17/17 07:39 3.0 04/15/17 21:11 Nasal Cannula Intake and Output 04/16/17 04/16/17 04/17/17 15:00 23:00 07:00 Intake Total 520 ml 400 ml Balance 520 ml 400 ml Exam General: Patient is lying in bed, does not appear in any acute distress HEENT: Atraumatic, normocephalic. The pupils are equal, round and reactive. Neck: Supple with full range of motion. No rigidity or meningismus Chest: Nontender Lungs: less coarse breath sounds at the lower left lung field Heart: Normal S1-S2, Regular rhythm and rate. Abdomen: Soft , nontender, nondistended , bowel sounds are present. No guarding no rebound tenderness , Extremities: Normal to inspection, no edema no cyanosis Neurologic: Awake and alert eyes open and will look at you but will not talk, will not follow commands. Results Result Diagram: 04/17/17 1217 04/17/17 0556 Results 24 hrs Laboratory Tests Test 04/16/17 17:58 04/16/17 22:16 04/17/17 05:56 04/17/17 08:17 Bedside Glucose 94 97 83 Sodium Level 143 Potassium Level 3.7 Chloride Level 117 H Carbon Dioxide Level 14 L Anion Gap 16 Blood Urea Nitrogen 40 H Creatinine 2.07 H Glucose Level 74 Calcium Level 7.8 L Test 04/17/17 12:17 04/17/17 13:05 White Blood Count 10.9 H Red Blood Count 2.89 L Hemoglobin 8.3 L Hematocrit 26.5 L Mean Corpuscular Volume 91.7 Mean Corpuscular Hemoglobin 28.7 L Mean Corpuscular Hemoglobin Concent 31.3 L Red Cell Distribution Width 16.1 H Platelet Count 191 Mean Platelet Volume 10.4 Neutrophils % 90.8 H Lymphocytes % 3.3 L Monocytes % 4.7 Eosinophils % 0.1 Basophils % 0.2 Nucleated Red Blood Cells % 0.0 Neutrophils # 9.9 H Lymphocytes # 0.4 L Monocytes # 0.5 Eosinophils # 0.0 Basophils # 0.0 Nucleated Red Blood Cells # 0.0 Bedside Glucose 94 Medications Medications Current Medications Ondansetron HCl (Zofran Inj) 4 mg Q6H PRN IV NAUSEA AND/OR VOMITING; Start 04/14 at 20:30 Acetaminophen (Tylenol Tab) 650 mg Q6H PRN PO PAIN LEVEL 1-3 OR FEVER; Start at 20:30 Heparin Sodium (Porcine) (Heparin (5000 Units/0.5 ml)) 5,000 unit Q8 SC Last administered on 04/17/17 05:42; Admin Dose 5,000 UNIT; Start 04/14/17 at 22:00 Amiodarone HCl (Cordarone) 100 mg BID PO Last administered on 04/17/17 08:30; Admin Dose 100 MG; Start 04/15/17 at 09:00 Donepezil HCl (Aricept) 10 mg DAILY PO Last administered on 04/17/17 08:31; Admin Dose 10 MG; Start 04/15/17 at 09:00 Ferrous Sulfate (Ferrous Sulfate (Ec)) 325 mg TID PO Last administered on 08:31; Admin Dose 325 MG; Start 04/15/17 at 09:00 Mirtazapine (Remeron) 30 mg DAILY PO Last administered on 04/17/17 08:30; Admin Dose 30 MG; Start 04/15/17 at 09:00 Prednisone (Prednisone) 5 mg DAILY PO Last administered on 04/17/17 08:30; Admin Dose 5 MG; Start 04/15/17 at 09:00 Senna (Senokot) 2 tab BID PO Last administered on 04/17/17 08:31; Admin Dose 2 TAB; Start 04/15/17 at 09:00 Diagnostic Test (Pha) (Accu-Chek) 1 ea 02 XX ; Start 04/16/17 at 02:00 Miscellaneous Information 1 ea NOTE XX ; Start 04/15/17 at 07:00 Glucose (Glutose) 15 gm Q15M PRN PO DECREASED GLUCOSE; Start 04/15/17 at 07:00 Glucose (Glutose) 22.5 gm Q15M PRN PO DECREASED GLUCOSE; Start 04/15/17 at 07:00 Dextrose (D50w Syringe) 25 ml Q15M PRN IV DECREASED GLUCOSE; Start 04/15/17 at 07:00 Dextrose (D50w Syringe) 50 ml Q15M PRN IV DECREASED GLUCOSE; Start 04/15/17 at 07:00 Glucagon (Glucagen) 1 mg Q15M PRN IM DECREASED GLUCOSE; Start 04/15/17 at 07:00 Glucose 15 gm 15 gm Q15M PRN BUCCAL DECREASED GLUCOSE; Start 04/15/17 at 07:00 Sodium Chloride 1,000 ml @ 100 mls/hr Q10H IV Last administered on 04/17/17 04 :00; Admin Dose 100 MLS/HR; Start 04/15/17 at 12:00 Cefepime HCl (Maxipime 2gm/50 ml (Pmx)) 50 ml @ 100 mls/hr Q24H IVPB Last administered on 04/16/17 18:00; Admin Dose 100 MLS/HR; Start 04/16/17 at 18:00 VERNA RUIZ Apr 17, 2017 13:50
[2017-04-17] MEDS: CEFEPIME 2GM/50 ML (PMX) 50 ML IVPB SCH (18:22)
--- NOTE | 2017-04-17 19:23 | CONS ---
DATE OF ADMISSION: 04/14/2017 DATE OF CONSULTATION: 04/17/2017 TYPE OF CONSULTATION: Nephrology. REFERRING PHYSICIAN: Dr. Verna Ruiz REASON FOR CONSULTATION: Acute versus acute on chronic renal failure. 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 The patient has been being treated with IV antibiotics for possible urinary tract infection with urine culture growing pseudomonas. The patient also had a non -ST elevation myocardial infarction secondary to demand ischemia. The patient had an acute kidney i njury with rising BUN and creatinine, and nephrology has been consulted for acute kidney injury. 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 PAST MEDICAL HISTORY: As per HPI. FAMILY HISTORY: Not available. 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 No smoking, alcohol, or recre ational drug use. FAMILY HISTORY: Not available. PHYSICAL EXAMINATION: VITAL SIGNS: Temperature 97.6, heart rate 63, respiration 18, blood pressure 141/67, saturation is 95% on 2 liters nasal cannula. GENERAL: Awake, alert, mildly confused. HEENT: Pupils equal, round, reactive to light and accommodation. Extraocular muscles are intact. LUNGS: Clear to auscultation. Some basilar rales present. No wheezing. HEART: S1, S2 with regular rhythm. No murmur. ABDOMEN: Soft, nontender, nondistended. Bowel sounds are present. EXTREMITIES: Mild pitting edema. NEUROLOGICAL: Uncooperative for exam. LABORATORY DATA AND DIAGNOSTIC IMAGING: Sodium 143, potassium 3.7, chloride 117, bicarbonate 14, BU N 40, creatinine 2.07, glucose 74, calcium 7.8. WBC on admission was 22, now improved to 10.9, hemo globin 8.3, platelet count 191. IMPRESSION: This is an 89-year-old female who was admitted for altered mental status secondary to s epsis. The patient also had a left lower lobe pneumonia and noted to have a urinary tract infection with urine culture growing pseudomonas. Renal has been consulted for: 1. Acute kidney injury likely secondary to acute tubular necrosis from sepsis. 2. Sepsis secondary to urinary tract infection and left basilar infiltrates. 3. Urinary tract infection with urine culture growing pseudomonas. 4. Hypertension. 5. Hyperlipidemia. 6. Rule out chronic kidney disease. PLAN: Thank you, Dr. Ruiz, for this consultation. 1. I will order the patient some urine studies including a urine sodium, urine protein, urine creat inine, and urine eosinophils. 2. I will order the CK total with uric acid in the a.m. labs. 3. The patient likely has a chronic kidney disease. Will order a renal ultrasound to better assess the echogenicity and to rule out hydronephrosis. 4. Continue the current IV fluids, NS at 100 mL per hour. 5. IV antibiotics as per the primary care team. I will continue to follow this patient along with you. I am expecting the patient's creatinine to i mprove with IV fluid hydration and IV treatment for sepsis. The patient is currently seen on the telemetry floor and she will be followed up along with her cour se in the hospital. Total time spent in this patient's consultation and communicating with the patient's family and [facility] staff took more than 60 minutes. Dictated By: WILFRIDO GARCIA MD, KP/RASHAD Conf#: [id number] DID#: [id number] CC: VERNA RUIZ; YAHAIRA CLAROS MD;*End*
--- NOTE | 2017-04-17 20:49 | RADRPT ---
PROCEDURE: Renal US. CLINICAL INDICATION: Acute renal failure TECHNIQUE: Multiple sonographic images of the kidneys were obtained. The images were reviewed on a PACS workstation. COMPARISON: No prior studies are available for comparison. FINDINGS: Right kidney: Normal in size, contour and echogenicity. No mass, calculus or hydronephrosis is pre sent. Renal size is estimated at 9.9 x 4.6 x 3.9 cm. Left kidney: Normal in size, contour and echogenicity. There is no evidence of hydronephrosis. Ec hogenic foci are probably vascular calcifications, no obvious calculus or mass demonstrated. Renal size is estimated at 10.5 x 5.3 x 4.3 cm. Urinary bladder: Contracted around a Ordonez catheter and unable to be evaluated. RPTAT:HJJR IMPRESSION: 1. Unremarkable renal ultrasound without findings to explain the provided history. Physician Karel Date Time Electronically viewed and signed by Physician Karel on 04/17/2017 20:48 /
[2017-04-17] MEDS: DEXTROSE 5%-0.45% NACL 1,000 ML IV SCH (20:51)
[2017-04-18] VITALS (17 sets, daily range): BP systolic 130–170; BP diastolic 57–82; PULSE 57–63; RESP 14–20
[2017-04-18] MEDS: ACCU-CHEK XX SCH (02:00)
[2017-04-18] MEDS: HEPARIN 5,000 UNIT/0.5 ML VIAL SC SCH ×3 (05:26→21:53)
[2017-04-18] MEDS: LEVOTHYROXINE 125 MCG TAB PO SCH (06:48)
[2017-04-18 07:35] LABS: ADD SCAN DIFF NO
[2017-04-18 07:36] LABS: ABNORMAL IP MESSAGE 1; BASOPHILS % 0.2 % (0.0-2.0); EOSINOPHILS % 0.4 % (0.0-7.0); HEMATOCRIT 26.4 % (37.0-47.0); HEMOGLOBIN 8.2 g/dl (12.0-16.0); LYMPHOCYTES # 0.5 10^3/ul (0.8-2.9); LYMPHOCYTES % 4.2 % (15.0-51.0); MEAN CORPUSCULAR HEMOGLOBIN 28.1 pg (29.0-33.0); MEAN CORPUSCULAR HGB CONC 31.1 g/dl (32.0-37.0); MEAN CORPUSCULAR VOLUME 90.4 fl (82.0-101.0); MEAN PLATELET VOLUME 10.4 fl (7.4-10.4); MONOCYTE # 0.7 10^3/ul (0.3-0.9); MONOCYTES % 6.1 % (0.0-11.0); PLATELET COUNT 217 10^3/UL (140-415); RED BLOOD COUNT 2.92 10^6/ul (4.20-5.40); RED CELL DISTRIBUTION WIDTH 16.4 % (11.5-14.5); WHITE BLOOD COUNT 11.4 10^3/ul (4.8-10.8)
[2017-04-18] MEDS: DEXTROSE 5%-0.45% NACL 1,000 ML IV SCH ×2 (08:01→14:39)
[2017-04-18] MEDS: predniSONE 5 MG TAB PO SCH (08:02)
[2017-04-18] MEDS: FERROUS SULFATE (EC) 325 MG TAB PO SCH ×3 (08:02→21:40)
[2017-04-18] MEDS: DONEPEZIL 10 MG TAB PO SCH (08:02)
[2017-04-18] MEDS: SENNA TAB PO SCH ×2 (08:02→21:48)
[2017-04-18] MEDS: MIRTAZAPINE 15 MG TAB PO SCH (08:02)
[2017-04-18] MEDS: INSULIN ASPART [NOVOLOG] 3 ML PEN SC SCH ×4 (08:04→21:00)
[2017-04-18 08:06] LABS: CALCIUM 7.9 mg/dl (8.4-10.2); CREATININE 2.02 mg/dl (0.44-1.00); POTASSIUM 3.2 mmol/L (3.5-5.1)
[2017-04-18] MEDS: AMIODARONE 200 MG TAB PO SCH ×2 (08:06→21:42)
[2017-04-18 08:17] LABS: URIC ACID 6.4 mg/dl (3.1-7.9)
[2017-04-18] MEDS ORDERED: SOD CHLORIDE 0.9% 250 ML IV* ONE (13:43)
[2017-04-18] MEDS ORDERED: POTASSIUM CHLORIDE (SR) 20 MEQ TAB PO STA (13:46)
--- NOTE | 2017-04-18 13:50 | PN ---
Date/Time of Note Date/Time of Note DATE: 04/18/17 TIME: 13:48 Assessment/Plan VTE Prophylaxis VTE Prophylaxis Intervention: SCD's Lines/Catheters IV Catheter Type (from Nrs): Peripheral IV Urinary Cath still in place: Yes Reason Cath still needed: urinary retention Assessment/Plan Chief Complaint/Hosp Course Assessment/Plan: 89 yo F with DM, hypothyroid, facility resident admitted for AMS 2/2 severe sepsis. 1. sepsis: source lung v urine. Suspect urine given culture data (+ Pseudomonas) - continue cefepime abx, needs 5 more days - f/u final urine/blood cultures in process - f/u sputum culture and urine strep Ag - PT eval still pending 2. NSTEMI: elevated trop 2/2 demand, already downtrending (trop this AM = nL) - monitor for now 3. acute renal insufficiency: suspect prenreal 2/2 sepsis - Cr slightly improved - cont IVFs, f/u renal rec's 4. DM2: hold home meds, SSI 5. hypothyroid: cont synthroid 6. h/o arrhythmia? cont home amio 7. dementia: cont donezepil 8. prophx: SCDs dispo pending improvement in Cr and possible d/c back to SNF in 24 hrs Problems: Subjective 24 Hr Interval Summary Free Text/Dictation Pt has some confusion still. Seen by ST this AM. Exam/Review of Systems Vital Signs Vitals Vital Signs Date Time Temp Pulse Resp B/P Pulse Ox O2 Delivery O2 Flow Rate FiO2 04/18/17 12:00 59 04/18/17 11:45 97.6 18 142/67 94 04/18/17 01:44 21 04/17/17 22:21 04/15/17 21:11 Nasal Cannula Intake and Output 04/17/17 04/17/17 04/18/17 15:00 23:00 07:00 Intake Total 1550 ml 80 ml Output Total 500 ml Balance 1550 ml -420 ml Exam General: Patient is lying in bed, does not appear in any acute distress HEENT: Atraumatic, normocephalic. The pupils are equal, round and reactive. Neck: Supple with full range of motion. No rigidity or meningismus Chest: Nontender Lungs: less coarse breath sounds at the lower left lung field Heart: Normal S1-S2, Regular rhythm and rate. Abdomen: Soft , nontender, nondistended , bowel sounds are present. No guarding no rebound tenderness , Extremities: Normal to inspection, no edema no cyanosis Neurologic: Awake and alert eyes open and will look at you but will not talk, will not follow commands. Results Result Diagram: 04/18/17 0645 04/18/17 0645 Results 24 hrs Laboratory Tests Test 04/17/17 14:05 04/17/17 17:41 04/17/17 20:50 04/18/17 06:45 Troponin I 0.019 Bedside Glucose 113 126 White Blood Count 11.4 H Red Blood Count 2.92 L Hemoglobin 8.2 L Hematocrit 26.4 L Mean Corpuscular Volume 90.4 Mean Corpuscular Hemoglobin 28.1 L Mean Corpuscular Hemoglobin Concent 31.1 L Red Cell Distribution Width 16.4 H Platelet Count 217 Mean Platelet Volume 10.4 Neutrophils % 88.0 H Lymphocytes % 4.2 L Monocytes % 6.1 Eosinophils % 0.4 Basophils % 0.2 Nucleated Red Blood Cells % 0.0 Neutrophils # 10.0 H Lymphocytes # 0.5 L Monocytes # 0.7 Eosinophils # 0.0 Basophils # 0.0 Nucleated Red Blood Cells # 0.0 Sodium Level 142 Potassium Level 3.2 L Chloride Level 119 H Carbon Dioxide Level 15 L Anion Gap 11 Blood Urea Nitrogen 38 H Creatinine 2.02 H Glucose Level 160 Uric Acid 6.4 Calcium Level 7.9 L Creatine Kinase 20 L Test 04/18/17 08:00 04/18/17 12:13 Bedside Glucose 178 177 Medications Medications Current Medications Ondansetron HCl (Zofran Inj) 4 mg Q6H PRN IV NAUSEA AND/OR VOMITING; Start 04/14 at 20:30 Acetaminophen (Tylenol Tab) 650 mg Q6H PRN PO PAIN LEVEL 1-3 OR FEVER; Start at 20:30 Heparin Sodium (Porcine) (Heparin (5000 Units/0.5 ml)) 5,000 unit Q8 SC Last administered on 04/18/17 13:12; Admin Dose 5,000 UNIT; Start 04/14/17 at 22:00 Amiodarone HCl (Cordarone) 100 mg BID PO Last administered on 04/18/17 08:06; Admin Dose 100 MG; Start 04/15/17 at 09:00 Donepezil HCl (Aricept) 10 mg DAILY PO Last administered on 04/18/17 08:02; Admin Dose 10 MG; Start 04/15/17 at 09:00 Ferrous Sulfate (Ferrous Sulfate (Ec)) 325 mg TID PO Last administered on 13:12; Admin Dose 325 MG; Start 04/15/17 at 09:00 Mirtazapine (Remeron) 30 mg DAILY PO Last administered on 04/18/17 08:02; Admin Dose 30 MG; Start 04/15/17 at 09:00 Prednisone (Prednisone) 5 mg DAILY PO Last administered on 04/18/17 08:02; Admin Dose 5 MG; Start 04/15/17 at 09:00 Senna (Senokot) 2 tab BID PO Last administered on 04/18/17 08:02; Admin Dose 2 TAB; Start 04/15/17 at 09:00 Diagnostic Test (Pha) (Accu-Chek) 1 ea 02 XX ; Start 04/16/17 at 02:00 Miscellaneous Information 1 ea NOTE XX ; Start 04/15/17 at 07:00 Glucose (Glutose) 15 gm Q15M PRN PO DECREASED GLUCOSE; Start 04/15/17 at 07:00 Glucose (Glutose) 22.5 gm Q15M PRN PO DECREASED GLUCOSE; Start 04/15/17 at 07:00 Dextrose (D50w Syringe) 25 ml Q15M PRN IV DECREASED GLUCOSE; Start 04/15/17 at 07:00 Dextrose (D50w Syringe) 50 ml Q15M PRN IV DECREASED GLUCOSE; Start 04/15/17 at 07:00 Glucagon (Glucagen) 1 mg Q15M PRN IM DECREASED GLUCOSE; Start 04/15/17 at 07:00 Glucose 15 gm 15 gm Q15M PRN BUCCAL DECREASED GLUCOSE; Start 04/15/17 at 07:00 Cefepime HCl 50 ml @ 100 mls/hr Q24H IVPB Last administered on 04/17/17 18:22 ; Admin Dose 100 MLS/HR; Start 04/16/17 at 18:00 Dextrose/Sodium Chloride (D5-1/2ns) 1,000 ml @ 75 mls/hr [id number] IV Last administered on 04/17/17 20:51; Admin Dose 75 MLS/HR; Start 04/17/17 at 19:00 VERNA RUIZ Apr 18, 2017 13:50
[2017-04-18 15:50] LABS: PROTEIN/CREAT RATIO 2.23 RATIO
[2017-04-18] MEDS: CEFEPIME 2GM/50 ML (PMX) 50 ML IVPB SCH (17:12)
--- NOTE | 2017-04-18 22:12 | CONS ---
Date/Time of Note Date/Time of Note DATE: 04/18/17 TIME: 22:09 Assessment/Plan Assessment/Plan Additional Assessment/Plan 1. Acute kidney injury likely secondary to acute tubular necrosis from sepsis. 2. Sepsis secondary to urinary tract infection and left basilar infiltrates. 3. Urinary tract infection with urine culture growing pseudomonas. 4. Hypertension. 5. Hyperlipidemia. 6. Rule out chronic kidney disease. PLAN: Cr still hgh, HCO3 dropping down Bp stable Plan for PRBC transfusion Bicitra for metabolic acidosis if HCO3 continues to drop by tomorrow then we will plan for bicarbonate drip will follow up Consultation Date/Type/Reason Admit Date/Time Apr 14, 2017 at 20:34 Initial Consult Date Apr Type of Consultation: NEPHROLOGY Reason for Consultation Acute kidney injury , Sepsis Referring Provider: YAHAIRA CLAROS Exam/Review of Systems Vital Signs Vitals Vital Signs Date Time Temp Pulse Resp B/P Pulse Ox O2 Delivery O2 Flow Rate FiO2 04/18/17 20:16 60 04/18/17 19:47 97.7 14 160/60 98 04/18/17 16:06 Room Air 04/18/17 01:44 21 04/17/17 22:21 Intake and Output 04/17/17 04/17/17 04/18/17 15:00 23:00 07:00 Intake Total 1550 ml 80 ml Output Total 500 ml Balance 1550 ml -420 ml Exam GENERAL: Awake, alert, mildly confused. HEENT: Pupils equal, round, reactive to light and accommodation. Extraocular muscles are intact. LUNGS: Clear to auscultation. Some basilar rales present. No wheezing. HEART: S1, S2 with regular rhythm. No murmur. ABDOMEN: Soft, nontender, nondistended. Bowel sounds are present. EXTREMITIES: Mild pitting edema. NEUROLOGICAL: Uncooperative for exam Results Result Diagram: 04/18/17 0645 04/18/17 0645 Results 24 hrs Laboratory Tests Test 04/18/17 01:10 04/18/17 06:45 04/18/17 08:00 04/18/17 12:13 Urine Eosinophils % 0.0 Urine Random Creatinine 42.15 Urine Random Sodium 108 H Urine Protein/Creatinine Ratio 2.23 Urine Total Protein 94.0 H White Blood Count 11.4 H Red Blood Count 2.92 L Hemoglobin 8.2 L Hematocrit 26.4 L Mean Corpuscular Volume 90.4 Mean Corpuscular Hemoglobin 28.1 L Mean Corpuscular Hemoglobin Concent 31.1 L Red Cell Distribution Width 16.4 H Platelet Count 217 Mean Platelet Volume 10.4 Neutrophils % 88.0 H Lymphocytes % 4.2 L Monocytes % 6.1 Eosinophils % 0.4 Basophils % 0.2 Nucleated Red Blood Cells % 0.0 Neutrophils # 10.0 H Lymphocytes # 0.5 L Monocytes # 0.7 Eosinophils # 0.0 Basophils # 0.0 Nucleated Red Blood Cells # 0.0 Sodium Level 142 Potassium Level 3.2 L Chloride Level 119 H Carbon Dioxide Level 15 L Anion Gap 11 Blood Urea Nitrogen 38 H Creatinine 2.02 H Glucose Level 160 Uric Acid 6.4 Calcium Level 7.9 L Creatine Kinase 20 L Bedside Glucose 178 177 Test 04/18/17 17:15 04/18/17 21:45 Bedside Glucose 137 120 Medications Medications Current Medications Ondansetron HCl (Zofran Inj) 4 mg Q6H PRN IV NAUSEA AND/OR VOMITING; Start 04/14 at 20:30 Acetaminophen (Tylenol Tab) 650 mg Q6H PRN PO PAIN LEVEL 1-3 OR FEVER; Start at 20:30 Heparin Sodium (Porcine) (Heparin (5000 Units/0.5 ml)) 5,000 unit Q8 SC Last administered on 04/18/17 21:53; Admin Dose 5,000 UNIT; Start 04/14/17 at 22:00 Amiodarone HCl (Cordarone) 100 mg BID PO Last administered on 04/18/17 21:42; Admin Dose 100 MG; Start 04/15/17 at 09:00 Donepezil HCl (Aricept) 10 mg DAILY PO Last administered on 04/18/17 08:02; Admin Dose 10 MG; Start 04/15/17 at 09:00 Ferrous Sulfate (Ferrous Sulfate (Ec)) 325 mg TID PO Last administered on 21:40; Admin Dose 325 MG; Start 04/15/17 at 09:00 Mirtazapine (Remeron) 30 mg DAILY PO Last administered on 04/18/17 08:02; Admin Dose 30 MG; Start 04/15/17 at 09:00 Prednisone (Prednisone) 5 mg DAILY PO Last administered on 04/18/17 08:02; Admin Dose 5 MG; Start 04/15/17 at 09:00 Senna (Senokot) 2 tab BID PO Last administered on 04/18/17 21:48; Admin Dose 2 TAB; Start 04/15/17 at 09:00 Diagnostic Test (Pha) (Accu-Chek) 1 ea 02 XX ; Start 04/16/17 at 02:00 Miscellaneous Information 1 ea NOTE XX ; Start 04/15/17 at 07:00 Glucose (Glutose) 15 gm Q15M PRN PO DECREASED GLUCOSE; Start 04/15/17 at 07:00 Glucose (Glutose) 22.5 gm Q15M PRN PO DECREASED GLUCOSE; Start 04/15/17 at 07:00 Dextrose (D50w Syringe) 25 ml Q15M PRN IV DECREASED GLUCOSE; Start 04/15/17 at 07:00 Dextrose (D50w Syringe) 50 ml Q15M PRN IV DECREASED GLUCOSE; Start 04/15/17 at 07:00 Glucagon (Glucagen) 1 mg Q15M PRN IM DECREASED GLUCOSE; Start 04/15/17 at 07:00 Glucose 15 gm 15 gm Q15M PRN BUCCAL DECREASED GLUCOSE; Start 04/15/17 at 07:00 Cefepime HCl 50 ml @ 100 mls/hr Q24H IVPB Last administered on 04/18/17 17:12 ; Admin Dose 100 MLS/HR; Start 04/16/17 at 18:00 Dextrose/Sodium Chloride (D5-1/2ns) 1,000 ml @ 75 mls/hr [id number] IV Last administered on 04/18/17 14:39; Admin Dose 75 MLS/HR; Start 04/17/17 at 19:00 WILFRIDO GARCIA MD Apr 18, 2017 22:12
[2017-04-19] VITALS (12 sets, daily range): BP systolic 121–156; BP diastolic 61–88; PULSE 59–90; RESP 18–20
[2017-04-19] MEDS: ACCU-CHEK XX SCH (02:00)
[2017-04-19] MEDS: LEVOTHYROXINE 125 MCG TAB PO SCH (06:26)
[2017-04-19] MEDS: HEPARIN 5,000 UNIT/0.5 ML VIAL SC SCH ×3 (06:33→22:14)
[2017-04-19] MEDS: DEXTROSE 5%-0.45% NACL 1,000 ML IV SCH (06:49)
[2017-04-19 07:04] LABS: ADD SCAN DIFF NO
[2017-04-19 07:16] LABS: BASOPHIL # 0.1 10^3/ul (0.0-0.1); BASOPHILS % 0.4 % (0.0-2.0); EOSINOPHILS # 0.1 10^3/ul (0.0-0.5); EOSINOPHILS % 0.5 % (0.0-7.0); HEMATOCRIT 33.8 % (37.0-47.0); HEMOGLOBIN 10.6 g/dl (12.0-16.0); LYMPHOCYTES # 0.6 10^3/ul (0.8-2.9); LYMPHOCYTES % 3.7 % (15.0-51.0); MEAN CORPUSCULAR HEMOGLOBIN 28.6 pg (29.0-33.0); MEAN CORPUSCULAR HGB CONC 31.4 g/dl (32.0-37.0); MEAN CORPUSCULAR VOLUME 91.4 fl (82.0-101.0); MEAN PLATELET VOLUME 10.4 fl (7.4-10.4); MONOCYTE # 1.1 10^3/ul (0.3-0.9); MONOCYTES % 6.6 % (0.0-11.0); NEUTROPHIL # 14.5 10^3/ul (1.6-7.5); NEUTROPHILS % 87.4 % (39.0-77.0); PLATELET COUNT 188 10^3/UL (140-415); RED CELL DISTRIBUTION WIDTH 16.4 % (11.5-14.5); WHITE BLOOD COUNT 16.6 10^3/ul (4.8-10.8)
[2017-04-19] MEDS: INSULIN ASPART [NOVOLOG] 3 ML PEN SC SCH ×4 (07:38→21:00)
[2017-04-19 07:56] LABS: CALCIUM 8.5 mg/dl (8.4-10.2); CREATININE 1.87 mg/dl (0.44-1.00); POTASSIUM 3.6 mmol/L (3.5-5.1)
[2017-04-19] MEDS: CITRIC ACID/SODIUM CITRATE 15 ML CUP PO SCH ×2 (09:00→22:00)
[2017-04-19] MEDS: DONEPEZIL 10 MG TAB PO SCH (09:30)
[2017-04-19] MEDS: MIRTAZAPINE 15 MG TAB PO SCH (09:30)
[2017-04-19] MEDS: FERROUS SULFATE (EC) 325 MG TAB PO SCH ×3 (09:30→22:04)
[2017-04-19] MEDS: predniSONE 5 MG TAB PO SCH (09:31)
[2017-04-19] MEDS: SENNA TAB PO SCH ×2 (09:31→22:04)
[2017-04-19] MEDS: AMIODARONE 200 MG TAB PO SCH ×2 (09:31→22:02)
--- NOTE | 2017-04-19 12:22 | PN ---
Date/Time of Note Date/Time of Note DATE: 04/19/17 TIME: 12:18 Assessment/Plan VTE Prophylaxis VTE Prophylaxis Intervention: SCD's Lines/Catheters IV Catheter Type (from Nrsg): Peripheral IV Urinary Cath still in place: Yes Reason Cath still needed: urinary retention Assessment/Plan Chief Complaint/Hosp Course Assessment/Plan: 89 yo F with DM, hypothyroid, facility resident admitted for AMS 2/2 severe sepsis. 1. sepsis: source lung v urine. Suspect urine given culture data (+ Pseudomonas) - continue cefepime abx, needs 4 more days - f/u final urine/blood cultures in process - f/u sputum culture and urine strep Ag - PT eval still pending - on Bicitra as well for met acidosis, per discussion with renal team, will also need IV bicarb today 2. NSTEMI: elevated trop 2/2 demand, already downtrending (trop this AM = nL) - monitor for now 3. acute renal insufficiency: suspect prenreal 2/2 sepsis - Cr improved - cont IVFs, f/u renal rec's 4. DM2: hold home meds, SSI 5. hypothyroid: cont synthroid 6. h/o arrhythmia? cont home amio 7. dementia: cont donezepil 8. prophx: SCDs dispo pending improvement in Cr and d/c back to SNF in 24 hrs Problems: Subjective 24 Hr Interval Summary Free Text/Dictation No acute events overnight. Exam/Review of Systems Vital Signs Vitals Vital Signs Date Time Temp Pulse Resp B/P Pulse Ox O2 Delivery O2 Flow Rate FiO2 04/19/17 11:21 98.0 60 18 135/77 96 04/18/17 16:06 Room Air 04/18/17 01:44 21 04/17/17 22:21 Intake and Output 04/18/17 04/18/17 04/19/17 15:00 23:00 07:00 Intake Total 1610 ml 1020 ml Output Total 400 ml 300 ml Balance 1210 ml 720 ml Exam General: Patient is lying in bed, does not appear in any acute distress HEENT: Atraumatic, normocephalic. The pupils are equal, round and reactive. Neck: Supple with full range of motion. No rigidity or meningismus Chest: Nontender Lungs: less coarse breath sounds at the lower left lung field Heart: Normal S1-S2, Regular rhythm and rate. Abdomen: Soft , nontender, nondistended , bowel sounds are present. No guarding no rebound tenderness , Extremities: Normal to inspection, no edema no cyanosis Neurologic: Awake and alert eyes open and will look at you but will not talk, will not follow commands. Results Result Diagram: 04/19/17 0600 04/19/17 0602 Results 24 hrs Laboratory Tests Test 04/18/17 17:15 04/18/17 21:45 04/19/17 06:00 04/19/17 06:02 Bedside Glucose 137 120 White Blood Count 16.6 #H Red Blood Count 3.70 #L Hemoglobin 10.6 #L Hematocrit 33.8 #L Mean Corpuscular Volume 91.4 Mean Corpuscular Hemoglobin 28.6 L Mean Corpuscular Hemoglobin Concent 31.4 L Red Cell Distribution Width 16.4 H Platelet Count 188 Mean Platelet Volume 10.4 Neutrophils % 87.4 H Lymphocytes % 3.7 L Monocytes % 6.6 Eosinophils % 0.5 Basophils % 0.4 Nucleated Red Blood Cells % 0.0 Neutrophils # 14.5 H Lymphocytes # 0.6 L Monocytes # 1.1 H Eosinophils # 0.1 Basophils # 0.1 Nucleated Red Blood Cells # 0.0 Sodium Level 143 Potassium Level 3.6 Chloride Level 121 H Carbon Dioxide Level 11 L Anion Gap 15 Blood Urea Nitrogen 33 H Creatinine 1.87 H Glucose Level 140 Calcium Level 8.5 Test 04/19/17 06:31 04/19/17 07:33 04/19/17 11:44 Lab Scanned Report BLOOD TRANSFUSION Bedside Glucose 162 134 Medications Medications Current Medications Ondansetron HCl (Zofran Inj) 4 mg Q6H PRN IV NAUSEA AND/OR VOMITING; Start 04/14 at 20:30 Acetaminophen (Tylenol Tab) 650 mg Q6H PRN PO PAIN LEVEL 1-3 OR FEVER; Start at 20:30 Heparin Sodium (Porcine) (Heparin (5000 Units/0.5 ml)) 5,000 unit Q8 SC Last administered on 04/19/17 06:33; Admin Dose 5,000 UNIT; Start 04/14/17 at 22:00 Amiodarone HCl (Cordarone) 100 mg BID PO Last administered on 04/19/17 09:31; Admin Dose 100 MG; Start 04/15/17 at 09:00 Donepezil HCl (Aricept) 10 mg DAILY PO Last administered on 04/19/17 09:30; Admin Dose 10 MG; Start 04/15/17 at 09:00 Ferrous Sulfate (Ferrous Sulfate (Ec)) 325 mg TID PO Last administered on 09:30; Admin Dose 325 MG; Start 04/15/17 at 09:00 Mirtazapine (Remeron) 30 mg DAILY PO Last administered on 04/19/17 09:30; Admin Dose 30 MG; Start 04/15/17 at 09:00 Prednisone (Prednisone) 5 mg DAILY PO Last administered on 04/19/17 09:31; Admin Dose 5 MG; Start 04/15/17 at 09:00 Senna (Senokot) 2 tab BID PO Last administered on 04/19/17 09:31; Admin Dose 2 TAB; Start 04/15/17 at 09:00 Diagnostic Test (Pha) (Accu-Chek) 1 ea 02 XX ; Start 04/16/17 at 02:00 Miscellaneous Information 1 ea NOTE XX ; Start 04/15/17 at 07:00 Glucose (Glutose) 15 gm Q15M PRN PO DECREASED GLUCOSE; Start 04/15/17 at 07:00 Glucose (Glutose) 22.5 gm Q15M PRN PO DECREASED GLUCOSE; Start 04/15/17 at 07:00 Dextrose (D50w Syringe) 25 ml Q15M PRN IV DECREASED GLUCOSE; Start 04/15/17 at 07:00 Dextrose (D50w Syringe) 50 ml Q15M PRN IV DECREASED GLUCOSE; Start 04/15/17 at 07:00 Glucagon (Glucagen) 1 mg Q15M PRN IM DECREASED GLUCOSE; Start 04/15/17 at 07:00 Glucose 15 gm 15 gm Q15M PRN BUCCAL DECREASED GLUCOSE; Start 04/15/17 at 07:00 Cefepime HCl 50 ml @ 100 mls/hr Q24H IVPB Last administered on 04/18/17 17:12 ; Admin Dose 100 MLS/HR; Start 04/16/17 at 18:00 Dextrose/Sodium Chloride (D5-1/2ns) 1,000 ml @ 75 mls/hr [id number] IV Last administered on 04/19/17 06:49; Admin Dose 75 MLS/HR; Start 04/17/17 at 19:00 Citric Acid/ Sodium Citrate (Bicitra) 30 ml BID PO ; Start 04/19/17 at 09:00 VERNA RUIZ Apr 19, 2017 12:22
--- NOTE | 2017-04-19 17:06 | CONS ---
Date/Time of Note Date/Time of Note DATE: 04/19/17 TIME: 17:03 Assessment/Plan Assessment/Plan Additional Assessment/Plan 1. Acute kidney injury likely secondary to acute tubular necrosis from sepsis. 2. Sepsis secondary to urinary tract infection and left basilar infiltrates. 3. Urinary tract infection with urine culture growing pseudomonas. 4. Hypertension. 5. Hyperlipidemia. 6. Rule out chronic kidney disease. PLAN: Cr imrpoved to 1.87 HCO3 dropping down continue bicitra will give Bicarbonate drip overnight and follow up on HCo3 in AM Bicitra for metabolic acidosis will follow up Consultation Date/Type/Reason Admit Date/Time Apr 14, 2017 at 20:34 Initial Consult Date Apr Type of Consultation: NEPHROLOGY Referring Provider: YAHAIRA CLAROS Exam/Review of Systems Vital Signs Vitals Vital Signs Date Time Temp Pulse Resp B/P Pulse Ox O2 Delivery O2 Flow Rate FiO2 04/19/17 16:14 97.6 60 18 150/83 100 04/18/17 16:06 Room Air 04/18/17 01:44 21 04/17/17 22:21 Intake and Output 04/18/17 04/18/17 04/19/17 15:00 23:00 07:00 Intake Total 1610 ml 1020 ml Output Total 400 ml 300 ml Balance 1210 ml 720 ml Results Result Diagram: 04/19/17 0600 04/19/17 0602 Results 24 hrs Laboratory Tests Test 04/18/17 17:15 04/18/17 21:45 04/19/17 06:00 04/19/17 06:02 Bedside Glucose 137 120 White Blood Count 16.6 #H Red Blood Count 3.70 #L Hemoglobin 10.6 #L Hematocrit 33.8 #L Mean Corpuscular Volume 91.4 Mean Corpuscular Hemoglobin 28.6 L Mean Corpuscular Hemoglobin Concent 31.4 L Red Cell Distribution Width 16.4 H Platelet Count 188 Mean Platelet Volume 10.4 Neutrophils % 87.4 H Lymphocytes % 3.7 L Monocytes % 6.6 Eosinophils % 0.5 Basophils % 0.4 Nucleated Red Blood Cells % 0.0 Neutrophils # 14.5 H Lymphocytes # 0.6 L Monocytes # 1.1 H Eosinophils # 0.1 Basophils # 0.1 Nucleated Red Blood Cells # 0.0 Sodium Level 143 Potassium Level 3.6 Chloride Level 121 H Carbon Dioxide Level 11 L Anion Gap 15 Blood Urea Nitrogen 33 H Creatinine 1.87 H Glucose Level 140 Calcium Level 8.5 Test 04/19/17 06:31 04/19/17 07:33 04/19/17 11:44 Lab Scanned Report BLOOD TRANSFUSION Bedside Glucose 162 134 Medications Medications Current Medications Ondansetron HCl (Zofran Inj) 4 mg Q6H PRN IV NAUSEA AND/OR VOMITING; Start 04/14 at 20:30 Acetaminophen (Tylenol Tab) 650 mg Q6H PRN PO PAIN LEVEL 1-3 OR FEVER; Start at 20:30 Heparin Sodium (Porcine) (Heparin (5000 Units/0.5 ml)) 5,000 unit Q8 SC Last administered on 04/19/17 15:12; Admin Dose 5,000 UNIT; Start 04/14/17 at 22:00 Amiodarone HCl (Cordarone) 100 mg BID PO Last administered on 04/19/17 09:31; Admin Dose 100 MG; Start 04/15/17 at 09:00 Donepezil HCl (Aricept) 10 mg DAILY PO Last administered on 04/19/17 09:30; Admin Dose 10 MG; Start 04/15/17 at 09:00 Ferrous Sulfate (Ferrous Sulfate (Ec)) 325 mg TID PO Last administered on 09:30; Admin Dose 325 MG; Start 04/15/17 at 09:00 Mirtazapine (Remeron) 30 mg DAILY PO Last administered on 04/19/17 09:30; Admin Dose 30 MG; Start 04/15/17 at 09:00 Prednisone (Prednisone) 5 mg DAILY PO Last administered on 04/19/17 09:31; Admin Dose 5 MG; Start 04/15/17 at 09:00 Senna (Senokot) 2 tab BID PO Last administered on 04/19/17 09:31; Admin Dose 2 TAB; Start 04/15/17 at 09:00 Diagnostic Test (Pha) (Accu-Chek) 1 ea 02 XX ; Start 04/16/17 at 02:00 Miscellaneous Information 1 ea NOTE XX ; Start 04/15/17 at 07:00 Glucose (Glutose) 15 gm Q15M PRN PO DECREASED GLUCOSE; Start 04/15/17 at 07:00 Glucose (Glutose) 22.5 gm Q15M PRN PO DECREASED GLUCOSE; Start 04/15/17 at 07:00 Dextrose (D50w Syringe) 25 ml Q15M PRN IV DECREASED GLUCOSE; Start 04/15/17 at 07:00 Dextrose (D50w Syringe) 50 ml Q15M PRN IV DECREASED GLUCOSE; Start 04/15/17 at 07:00 Glucagon (Glucagen) 1 mg Q15M PRN IM DECREASED GLUCOSE; Start 04/15/17 at 07:00 Glucose 15 gm 15 gm Q15M PRN BUCCAL DECREASED GLUCOSE; Start 04/15/17 at 07:00 Cefepime HCl 50 ml @ 100 mls/hr Q24H IVPB Last administered on 04/18/17 17:12 ; Admin Dose 100 MLS/HR; Start 04/16/17 at 18:00 Dextrose/Sodium Chloride (D5-1/2ns) 1,000 ml @ 75 mls/hr [id number] IV Last administered on 04/19/17 06:49; Admin Dose 75 MLS/HR; Start 04/17/17 at 19:00 Citric Acid/ Sodium Citrate (Bicitra) 30 ml BID PO ; Start 04/19/17 at 09:00 WILFRIDO GARCIA MD Apr 19, 2017 17:06
[2017-04-19] MEDS: SODIUM BICARBONATE (IV ADD) 100 MEQ in DEXTROSE 5% 1,000 ML IV SCH (18:35)
[2017-04-19] MEDS: CEFEPIME 2GM/50 ML (PMX) 50 ML IVPB SCH (18:35)
[2017-04-20] VITALS (12 sets, daily range): BP systolic 107–138; BP diastolic 54–73; PULSE 63–90; RESP 17–22
[2017-04-20] MEDS: ACCU-CHEK XX SCH (02:00)
[2017-04-20] MEDS: HEPARIN 5,000 UNIT/0.5 ML VIAL SC SCH ×3 (06:22→23:32)
[2017-04-20] MEDS: LEVOTHYROXINE 125 MCG TAB PO SCH (07:00)
[2017-04-20 07:03] LABS: ADD SCAN DIFF NO
[2017-04-20 07:07] LABS: ABNORMAL IP MESSAGE 1; BASOPHILS % 0.2 % (0.0-2.0); EOSINOPHILS % 0.1 % (0.0-7.0); HEMATOCRIT 30.4 % (37.0-47.0); HEMOGLOBIN 9.9 g/dl (12.0-16.0); LYMPHOCYTES # 0.2 10^3/ul (0.8-2.9); LYMPHOCYTES % 1.6 % (15.0-51.0); MEAN CORPUSCULAR HGB CONC 32.6 g/dl (32.0-37.0); MEAN CORPUSCULAR VOLUME 85.9 fl (82.0-101.0); MONOCYTE # 0.5 10^3/ul (0.3-0.9); MONOCYTES % 3.1 % (0.0-11.0); NEUTROPHIL # 12.9 10^3/ul (1.6-7.5); NEUTROPHILS % 87.5 % (39.0-77.0); PLATELET COUNT 224 10^3/UL (140-415); RED BLOOD COUNT 3.54 10^6/ul (4.20-5.40); RED CELL DISTRIBUTION WIDTH 16.2 % (11.5-14.5); WHITE BLOOD COUNT 14.7 10^3/ul (4.8-10.8)
[2017-04-20 07:32] LABS: CALCIUM 8.4 mg/dl (8.4-10.2); CREATININE 1.68 mg/dl (0.44-1.00)
[2017-04-20 07:37] LABS: POTASSIUM 2.7 mmol/L (3.5-5.1)
[2017-04-20] MEDS: INSULIN ASPART [NOVOLOG] 3 ML PEN SC SCH ×4 (08:16→21:00)
[2017-04-20] MEDS: MIRTAZAPINE 15 MG TAB PO SCH (09:00)
[2017-04-20] MEDS: DONEPEZIL 10 MG TAB PO SCH (09:00)
[2017-04-20] MEDS: AMIODARONE 200 MG TAB PO SCH ×2 (09:00→21:00)
[2017-04-20] MEDS: CITRIC ACID/SODIUM CITRATE 15 ML CUP PO SCH ×2 (09:00→21:00)
[2017-04-20] MEDS: predniSONE 5 MG TAB PO SCH (09:00)
[2017-04-20] MEDS: SENNA TAB PO SCH ×2 (09:00→21:00)
[2017-04-20] MEDS: FERROUS SULFATE (EC) 325 MG TAB PO SCH ×3 (09:00→21:00)
[2017-04-20] MEDS: SODIUM BICARBONATE (IV ADD) 100 MEQ in DEXTROSE 5% 1,000 ML IV SCH (09:47)
--- NOTE | 2017-04-20 10:10 | CONS ---
Date/Time of Note Date/Time of Note DATE: 04/20/17 TIME: 10:08 Assessment/Plan Assessment/Plan Additional Assessment/Plan 1. Acute kidney injury likely secondary to acute tubular necrosis from sepsis. 2. Sepsis secondary to urinary tract infection and left basilar infiltrates. 3. Urinary tract infection with urine culture growing pseudomonas. 4. Hypertension. 5. Hyperlipidemia. 6. Rule out chronic kidney disease. PLAN: Cr imrpoved to 1.67 with bicarbonate drip, HCO3 improved to 17- d/c bicarbonate drip continue bicitra on discharge will follow up possible plan for d/c to SNF Consultation Date/Type/Reason Admit Date/Time Apr 14, 2017 at 20:34 Initial Consult Date Apr Type of Consultation: NEPHROLOGY Referring Provider: YAHAIRA CLAROS 24 HR Interval Summary Free Text/Dictation HCo3 improved to 17, BP stable, afebrile , on bicarbonate drip Exam/Review of Systems Vital Signs Vitals Vital Signs Date Time Temp Pulse Resp B/P Pulse Ox O2 Delivery O2 Flow Rate FiO2 04/20/17 09:02 63 22 132/61 95 04/20/17 07:37 98.4 04/18/17 16:06 Room Air 04/18/17 01:44 21 04/17/17 22:21 Intake and Output 04/19/17 04/19/17 04/20/17 15:00 23:00 07:00 Intake Total 275 ml 200 ml Output Total 300 ml 300 ml Balance -25 ml -100 ml Exam General: awake, no acute distress HEENT:FIORDALIZA< EOMI Neck: Supple with full range of motion. No rigidity or meningismus Chest: Nontender Lungs: less coarse breath sounds at the lower left lung field Heart: Normal S1-S2, Regular rhythm and rate. Abdomen: Soft , nontender, nondistended , bowel sounds are present. No guarding no rebound tenderness , Extremities: Normal to inspection, no edema no cyanosis Neurologic:no focal deficits Results Result Diagram: 04/20/1760404/20/17604 Results 24 hrs Laboratory Tests Test 04/19/17 11:44 04/19/17 18:12 04/19/17 22:09 04/20/17 06:05 Bedside Glucose 134 139 142 White Blood Count 14.7 H Red Blood Count 3.54 L Hemoglobin 9.9 L Hematocrit 30.4 L Mean Corpuscular Volume 85.9 Mean Corpuscular Hemoglobin 28.0 L Mean Corpuscular Hemoglobin Concent 32.6 Red Cell Distribution Width 16.2 H Platelet Count 224 Mean Platelet Volume 10.0 Neutrophils % 87.5 H Lymphocytes % 1.6 L Monocytes % 3.1 Eosinophils % 0.1 Basophils % 0.2 Nucleated Red Blood Cells % 0.0 Neutrophils # 12.9 H Lymphocytes # 0.2 L Monocytes # 0.5 Eosinophils # 0.0 Basophils # 0.0 Nucleated Red Blood Cells # 0.0 Sodium Level 141 Potassium Level 2.7 *L Chloride Level 115 H Carbon Dioxide Level 17 L Anion Gap 12 Blood Urea Nitrogen 27 H Creatinine 1.68 H Glucose Level 140 Calcium Level 8.4 Test 04/20/17 08:05 Bedside Glucose 147 Medications Medications Current Medications Ondansetron HCl (Zofran Inj) 4 mg Q6H PRN IV NAUSEA AND/OR VOMITING; Start 04/14 at 20:30 Acetaminophen (Tylenol Tab) 650 mg Q6H PRN PO PAIN LEVEL 1-3 OR FEVER; Start at 20:30 Heparin Sodium (Porcine) (Heparin (5000 Units/0.5 ml)) 5,000 unit Q8 SC Last administered on 04/20/17 06:22; Admin Dose 5,000 UNIT; Start 04/14/17 at 22:00 Amiodarone HCl (Cordarone) 100 mg BID PO Last administered on 04/19/17 22:02; Admin Dose 100 MG; Start 04/15/17 at 09:00 Donepezil HCl (Aricept) 10 mg DAILY PO Last administered on 04/19/17 09:30; Admin Dose 10 MG; Start 04/15/17 at 09:00 Ferrous Sulfate (Ferrous Sulfate (Ec)) 325 mg TID PO Last administered on 22:04; Admin Dose 325 MG; Start 04/15/17 at 09:00 Mirtazapine (Remeron) 30 mg DAILY PO Last administered on 04/19/17 09:30; Admin Dose 30 MG; Start 04/15/17 at 09:00 Prednisone (Prednisone) 5 mg DAILY PO Last administered on 04/19/17 09:31; Admin Dose 5 MG; Start 04/15/17 at 09:00 Senna (Senokot) 2 tab BID PO Last administered on 04/19/17 22:04; Admin Dose 2 TAB; Start 04/15/17 at 09:00 Diagnostic Test (Pha) (Accu-Chek) 1 ea 02 XX ; Start 04/16/17 at 02:00 Miscellaneous Information 1 ea NOTE XX ; Start 04/15/17 at 07:00 Glucose (Glutose) 15 gm Q15M PRN PO DECREASED GLUCOSE; Start 04/15/17 at 07:00 Glucose (Glutose) 22.5 gm Q15M PRN PO DECREASED GLUCOSE; Start 04/15/17 at 07:00 Dextrose (D50w Syringe) 25 ml Q15M PRN IV DECREASED GLUCOSE; Start 04/15/17 at 07:00 Dextrose (D50w Syringe) 50 ml Q15M PRN IV DECREASED GLUCOSE; Start 04/15/17 at 07:00 Glucagon (Glucagen) 1 mg Q15M PRN IM DECREASED GLUCOSE; Start 04/15/17 at 07:00 Glucose 15 gm 15 gm Q15M PRN BUCCAL DECREASED GLUCOSE; Start 04/15/17 at 07:00 Cefepime HCl (Maxipime 2gm/50 ml (Pmx)) 50 ml @ 100 mls/hr Q24H IVPB Last administered on 04/19/17 18:35; Admin Dose 100 MLS/HR; Start 04/16/17 at 18:00 Citric Acid/ Sodium Citrate 30 ml 30 ml BID PO Last administered on 04/19/17 22 :00; Admin Dose 30 ML; Start 04/19/17 at 09:00 Sodium Bicarbonate/ Dextrose (Na Bicarb/D5W) 1,100 ml @ 75 mls/hr [id number] IV Last administered on 04/20/17 09:47; Admin Dose 75 MLS/HR; Start 04/19/17 at 17: 30 WILFRIDO GARCIA MD Apr 20, 2017 10:10
[2017-04-20] MEDS ORDERED: POTASSIUM CHLORIDE 30 MEQ in SOD CHLORIDE 0.9% 150 ML IVPB ONE (11:30)
--- NOTE | 2017-04-20 11:53 | PDOCDIS ---
Discharge Instructions CONDITION Patient Condition: Stable HOME CARE INSTRUCTIONS: Special Diet: carb controlled ACTIVITY: Activity Restrictions: Slowly Increase Activity VERNA RUIZ Apr 20, 2017 11:53
[2017-04-20] MEDS ORDERED: POTASSIUM CHLORIDE (SR) 20 MEQ TAB PO STA (11:54)
--- NOTE | 2017-04-20 12:42 | DS ---
DATE OF ADMISSION: 04/14/2017 DATE OF DISCHARGE: 04/20/2017 This is an 89-year-old female who was originally admitted on 04/15/2017 being discharged to long term facility on 04/20/2017. The patient came in with severe sepsis, she had a fever and eleva gabino white blood cell count. This was thought to be secondary to positive urine culture, so the marni ent had Pseudomonas urinary tract infection. I therefore placed her on cefepime antibiotics. The p atient also had some elevated troponins, thought to be secondary to demand ischemia. This is medica lly managed for now. She also had some renal insufficiency and some metabolic acidosis and was seen by renal team for that. She was given by Bicitra and also IV bicarbonate. She had her electrolyte s repleted as well. Her creatinine was elevated. It was trending down by the time of discharge. S he had adequate urine output. Her overall infection symptoms improved. Her white count was fluctua ting between 10 to 16 range. It was down to 14 on the day of discharge, but again she had no fevers and she is a bit more alert and closer back to baseline status. She was seen by physical therapy t hanny as well. She was back at her baseline status and after speaking with the [employer] consultant teams, gracyte r she gets some potassium today she will be discharged to long term facility today in improved condition. DISCHARGE MEDICATIONS: She will be sent with: 1. Tylenol 650 q.6h. p.r.n. 2. Amiodarone 100 mg b.i.d. 3. Cefepime 2 grams IV q.24h. for 3 more days. 4. Bicitra 30 mL p.o. b.i.d. for 7 more days. 5. Aricept 10 mg daily. 6. Ferrous sulfate 325 mg t.i.d. 7. Heparin 5000 units q.8h. 8. Aspart insulin mild sliding scale. 9. Levothyroxine 125 mcg every morning. 10. Mirtazapine 30 mg daily. 11. Zofran 4 mg IV q.6h. p.r.n. 12. Prednisone 5 mg daily. 13. Senna 2 tabs p.o. b.i.d. She will need followup with primary care doctor in the clinic in the next 1 to 2 weeks. FINAL DIAGNOSES: 1. Sepsis secondary to Pseudomonas urinary tract infection, now on antibiotics. 2. Metabolic acidosis, likely secondary to sepsis, improved on Bicitra and IV bicarbonate. 3. Elevated troponins secondary to demand ischemia, improved. 4. Acute on chronic renal insufficiency, improved. 5. Type 2 diabetes. 6. History of dementia, on Aricept. 7. Hypothyroidism. 8. Arrhythmia, on amiodarone. 9. History of breast cancer in the past. 10. History of myocardial infarction in the past. Time spent discharging patient 45 minutes. Dictated By: VERNA CRUZ Conf#: [id number] DID#: [id number]
[2017-04-20 15:17] LABS: Allen Test ACCEPTAB; MODE ROOM AIR
[2017-04-20 15:19] LABS: AADO2 Arterial 57.9 mmHg (7.0-24.0); Arterial Base Excess -6.8 mmol/L (-3.0-3); Arterial COHb 0.4 % (0.0-3.0); Arterial Fraction of Oxyhgb 92.7 % (93.0-99.0); Arterial HCO3 15.4 mmol/L (22.0-26.0); Arterial MetHb 0.4 % (0.0-1.5); Arterial Total Hemglobin 13.3 g/dl (12.0-18.0)
--- NOTE | 2017-04-20 16:06 | RADRPT ---
PROCEDURE: CT Brain without contrast. CLINICAL INDICATION: Neurologic deficits. Evaluate for CVA TECHNIQUE: A CT of the brain was performed on a multidetector CT scanner utilizing axial sections from the skull base through the vertex without contrast. Images were reviewed on a high-resolution [employer] workstation. Exam CTDI = 43.27 mGy and the DLP = 720.23 mGy-cm. One or more of the following dose reduction techniques were used: Automated exposure control Adjustment of the mA and/or kV according to patient size. Use of iterative reconstruction technique. COMPARISON: CT abdomen and pelvis 04/14/2017 FINDINGS: Moderate diffuse cerebral and cerebellar atrophy is present. There is proportionate dilatation of t he ventricular system and sulci in a symmetric fashion. There is prominence of the extraaxial spaces secondary to atrophy. There is no evidence of intracranial hemorrhage, mass effect or midline shift . Small focal pleural thickening is again seen along the left anterior falx. No abnormal intra-axial or extra-axial fluid collections are seen. The density of the brain is normal and the solano/white m atter differentiation is well preserved. Moderate confluent diffuse deep white matter microangiopat hic ischemic change is seen. The osseous structures are unremarkable. Paranasal sinuses are kasey r. Vascular calcifications are identified. IMPRESSION: 1. No intracranial hemorrhage, mass effect or midline shift. 2. Moderate generalized atrophy. Moderate microangiopathic ischemic change. 3. Intracranial atherosclerosis. RPTAT: BB .Abel Contreras MD, Date Time Electronically viewed and signed by .Abel Contreras MD, on 04/20/2017 16:05 .O/
[2017-04-20] MEDS: CEFEPIME 2GM/50 ML (PMX) 50 ML IVPB SCH (17:30)
--- NOTE | 2017-04-20 17:40 | RADRPT ---
PROCEDURE: Bilateral upper extremity venous ultrasound CLINICAL INDICATION: Bilateral upper extremity pain and swelling. Deep venous thrombosis. TECHNIQUE: Barker scale, color doppler, spectral doppler ultrasound imaging of the venous system of the bilateral upper extremities. Augmentation maneuvers were utilized. COMPARISON: No prior studies are available for comparison. FINDINGS: RIGHT: Internal jugular vein: Patent. Subclavian vein: Patent. Axillary vein: Patent. Brachial vein: Patent. Basilic vein: Patent. Cephalic vein: Patent. Radial vein: Patent. Ulnar vein: Patent. LEFT: Internal jugular vein: Patent. Subclavian vein: Patent. Axillary vein: Patent. Brachial vein: Patent. Basilic vein: Patent. Cephalic vein: Patent. Radial vein: Patent. Ulnar vein: Patent. Subcutaneous edema is present involving both forearms. IMPRESSION: No evidence of a deep vein thrombosis involving the bilateral upper extremities. Subcutaneous edema involving both forearms. RPTAT: AADD .Cameron Khan MD, MD Date Time Electronically viewed and signed by .Cameron Khan MD, on 04/20/2017 17:39 .B/
[2017-04-21] VITALS (9 sets, daily range): BP systolic 117–123; BP diastolic 55–65; PULSE 58–63; RESP 18–19
[2017-04-21] MEDS: ACCU-CHEK XX SCH (02:00)
[2017-04-21] MEDS: HEPARIN 5,000 UNIT/0.5 ML VIAL SC SCH ×2 (05:19→15:22)
[2017-04-21 05:57] LABS: AADO2 Arterial 3.6 mmHg (7.0-24.0); Allen Test ACCEPTAB; Arterial Base Excess -6.7 mmol/L (-3.0-3); Arterial COHb 0.2 % (0.0-3.0); Arterial Fraction of Oxyhgb 97.3 % (93.0-99.0); Arterial HCO3 16.4 mmol/L (22.0-26.0); Arterial MetHb 0.3 % (0.0-1.5); Arterial Total Hemglobin 14.9 g/dl (12.0-18.0); MODE NASAL CANNULA
[2017-04-21] MEDS: LEVOTHYROXINE 125 MCG TAB PO SCH (07:00)
[2017-04-21 07:55] LABS: ADD SCAN DIFF NO
[2017-04-21 07:57] LABS: ABNORMAL IP MESSAGE 1; BASOPHILS % 0.2 % (0.0-2.0); EOSINOPHILS # 0.2 10^3/ul (0.0-0.5); EOSINOPHILS % 1.3 % (0.0-7.0); HEMATOCRIT 28.2 % (37.0-47.0); HEMOGLOBIN 9.5 g/dl (12.0-16.0); LYMPHOCYTES # 0.5 10^3/ul (0.8-2.9); LYMPHOCYTES % 3.8 % (15.0-51.0); MEAN CORPUSCULAR HEMOGLOBIN 28.9 pg (29.0-33.0); MEAN CORPUSCULAR HGB CONC 33.7 g/dl (32.0-37.0); MEAN CORPUSCULAR VOLUME 85.7 fl (82.0-101.0); MEAN PLATELET VOLUME 11.1 fl (7.4-10.4); MONOCYTE # 0.4 10^3/ul (0.3-0.9); MONOCYTES % 3.4 % (0.0-11.0); NEUTROPHIL # 10.7 10^3/ul (1.6-7.5); NEUTROPHILS % 90.3 % (39.0-77.0); PLATELET COUNT 192 10^3/UL (140-415); RED BLOOD COUNT 3.29 10^6/ul (4.20-5.40); RED CELL DISTRIBUTION WIDTH 16.4 % (11.5-14.5); WHITE BLOOD COUNT 11.8 10^3/ul (4.8-10.8)
[2017-04-21 08:33] LABS: CREATININE 1.64 mg/dl (0.44-1.00); POTASSIUM 3.4 mmol/L (3.5-5.1)
[2017-04-21] MEDS: DONEPEZIL 10 MG TAB PO SCH (09:00)
[2017-04-21] MEDS: FERROUS SULFATE (EC) 325 MG TAB PO SCH ×2 (09:00→13:00)
[2017-04-21] MEDS: AMIODARONE 200 MG TAB PO SCH (09:00)
[2017-04-21] MEDS: SENNA TAB PO SCH (09:00)
[2017-04-21] MEDS: predniSONE 5 MG TAB PO SCH (09:00)
[2017-04-21] MEDS: CITRIC ACID/SODIUM CITRATE 15 ML CUP PO SCH (09:00)
[2017-04-21] MEDS: MIRTAZAPINE 15 MG TAB PO SCH (09:00)
[2017-04-21] MEDS: INSULIN ASPART [NOVOLOG] 3 ML PEN SC SCH ×3 (10:30→17:55)
--- NOTE | 2017-04-21 12:34 | DS ---
Date/Time of Note Date/Time of Note DATE: 04/21/17 TIME: 12:33 Discharge Summary Admission/Discharge Info Admit Date/Time Apr 14, 2017 at 20:34 Discharge Date/Time Final Diagnosis 1. Sepsis secondary to Pseudomonas urinary tract infection, now on antibiotics. 2. Metabolic acidosis, likely secondary to sepsis, improved on Bicitra and IV bicarbonate. 3. Elevated troponins secondary to demand ischemia, improved. 4. Acute on chronic renal insufficiency, improved. 5. Type 2 diabetes. 6. History of dementia, on Aricept. 7. Hypothyroidism. 8. Arrhythmia, on amiodarone. 9. History of breast cancer in the past. 10. History of myocardial infarction in the past. Time spent discharging patient 45 minutes. Hx of Present Illness If complaint: decline in mental status. This is a 89-year-old female who [facility] with very severe dementia according to the family who is here. The patient was seen here due to decreased level of consciousness. The patient is typically awake and alert and can watch TV and can talk to you. Apparently her mental status has declined over the period of 1 day is no other history is given such as she has had a fever cough vomiting diarrhea or other. On arrival the patient is in no acute distress she is not conversive. The patient is a DNR. Allergies: Penicillins, sulfa Medications: See [facility] This is an 89-year-old female who was originally admitted on 04/15/2017 being discharged to longterm facility on 04/21/2017. The patient came in with severe sepsis, she had a fever and elevated white blood cell count. This was thought to be secondary to positive urine culture, so the patient had Pseudomonas urinary tract infection. I therefore placed her on cefepime antibiotics. The patient also had some elevated troponins, thought to be secondary to demand ischemia. This is medically managed for now. She also had some renal insufficiency and some metabolic acidosis and was seen by renal team for that. She was given by Bicitra and also IV bicarbonate. She had her electrolytes repleted as well. Her creatinine was elevated. It was trending down by the time of discharge. She had adequate urine output. Her overall infection symptoms improved. Her white count was fluctuating between 10 to 16 range. It was down to 14 on the day of discharge, but again she had no fevers and she is a bit more alert and closer back to baseline status. She was seen by physical therapy team as well. She was back at her baseline status and after speaking with the [employer] consultant teams, after she gets some potassium today she will be discharged to longterm facility today in improved condition. DISCHARGE MEDICATIONS: She will be sent with: 1. Tylenol 650 q.6h. p.r.n. 2. Amiodarone 100 mg b.i.d. 3. Cefepime 2 grams IV q.24h. for 4 more days. 4. Bicitra 30 mL p.o. b.i.d. for 7 more days. 5. Aricept 10 mg daily. 6. Ferrous sulfate 325 mg t.i.d. 7. Heparin 5000 units q.8h. 8. Aspart insulin mild sliding scale. 9. Levothyroxine 125 mcg every morning. 10. Mirtazapine 30 mg daily. 11. Zofran 4 mg IV q.6h. p.r.n. 12. Prednisone 5 mg daily. 13. Senna 2 tabs p.o. b.i.d. She will need followup with primary care doctor in the clinic in the next 1 to 2 weeks. Home Meds Reported Medications Levothyroxine Sodium* (Levothyroxine Sodium*) 125 Mcg Tablet, 125 MCG PO BEFORE BREAKFAST, #30 TAB 04/14/17 Prednisone* (Prednisone*) 5 Mg Tab, 5 MG PO DAILY, TAB 04/14/17 Furosemide* (Furosemide*) 20 Mg Tablet, 20 MG PO DAILY, #60 TAB 17 Donepezil* (Donepezil*) 10 Mg Tablet, 10 MG PO DAILY, #30 TAB 17 Metformin Hcl* (Metformin Hcl*) 500 Mg Tablet, 500 MG PO WITH BREAKFAST DINNE, # 60 TAB 04/14/17 Sennosides* (Senna Lax*) 8.6 Mg Tablet, 2 TAB PO BID, TAB 17 Amiodarone Hcl* (Amiodarone Hcl*) 100 Mg Tablet, 100 MG PO BID, #30 TAB 17 Mirtazapine* (Mirtazapine*) 30 Mg Tablet, 30 MG PO DAILY, TAB 17 Ferrous Sulfate* (Ferrous Sulfate*) 325 Mg Tabec, 325 MG PO TID, TAB 04/14/17 Primary Care Provider Dash Centeno Pending Labs Laboratory Tests Test 04/20/17 14:34 04/20/17 17:28 04/20/17 21:57 04/21/17 05:00 Blood Gas Specimen Source Blood arterial Blood arterial Arterial Blood Date Drawn 04/20/2017 3:05:15 PM 04/21/2017 5:30:22 AM Arterial Blood pH (Temp corrected) 7.439 (7.350-7.450) 7.399 (7.350-7.450) Arterial Blood pCO2 (Temp correct) 23.3mmhg (35-45) 27.1mmhg (35-45) Arterial Blood pO2 (Temp corrected) 63.9mmHG (80-90.0) 106.5mmHG (80-90.0) Arterial Blood HCO3 15.4mmol/L (22.0-26.0) 16.4mmol/L (22.0-26.0) Arterial Blood Base Excess -6.8mmol/L (-3.0-3) -6.7mmol/L (-3.0-3) Arterial Blood Oxygen Saturation 93.4mmHG (95.0-100.0) 97.8mmHG (95.0-100.0) Jaylen Test ACCEPTAB ACCEPTAB Arterial Blood Gas Puncture Site Left Radial Right Radial Arterial Blood Carboxyhemoglobin 0.4% (0.0-3.0) 0.2% (0.0-3.0) Arterial Blood Methemoglobin 0.4% (0.0-1.5) 0.3% (0.0-1.5) Blood Gas A-a O2 Differential 57.9mmHg (7.0-24.0) 3.6mmHg (7.0-24.0) Oxyhemoglobin Percent 92.7% (93.0-99.0) 97.3% (93.0-99.0) Total Hemoglobin 13.3g/dl (12.0-18.0) 14.9g/dl (12.0-18.0) Blood Gas Temperature 37.0C 37.0C Blood Gas Modality ROOM AIR NASAL CANNULA FiO2 21.0% 20.0% Blood Gas Notified Whom MARTHA ORELLANA Blood Gas Notified Time 04/20/2017 3:18:55 PM 04/21/2017 5:56:51 AM Bedside Glucose 100mg/dL (70-220) 105mg/dL (70-220) Test 04/21/17 06:50 04/21/17 10:40 White Blood Count 11.810^3/ul (4.8-10.8) Red Blood Count 3.2910^6/ul (4.20-5.40) Hemoglobin 9.5g/dl (12.0-16.0) Hematocrit 28.2% (37.0-47.0) Mean Corpuscular Volume 85.7fl (82.0-101.0) Mean Corpuscular Hemoglobin 28.9pg (29.0-33.0) Mean Corpuscular Hemoglobin Concent 33.7g/dl (32.0-37.0) Red Cell Distribution Width 16.4% (11.5-14.5) Platelet Count 64171^3/UL (140-415) Mean Platelet Volume 11.1fl (7.4-10.4) Neutrophils % 90.3% (39.0-77.0) Lymphocytes % 3.8% (15.0-51.0) Monocytes % 3.4% (0.0-11.0) Eosinophils % 1.3% (0.0-7.0) Basophils % 0.2% (0.0-2.0) Nucleated Red Blood Cells % 0.0/100WBC (0.0-0.0) Neutrophils # 10.710^3/ul (1.6-7.5) Lymphocytes # 0.510^3/ul (0.8-2.9) Monocytes # 0.410^3/ul (0.3-0.9) Eosinophils # 0.210^3/ul (0.0-0.5) Basophils # 0.010^3/ul (0.0-0.1) Nucleated Red Blood Cells # 0.010^3/ul (0.0-0.0) Sodium Level 140mmol/L (135-144) Potassium Level 3.4mmol/L (3.5-5.1) Chloride Level 117mmol/L (97-110) Carbon Dioxide Level 18mmol/L (21-31) Anion Gap 8 (8-16) Blood Urea Nitrogen 28mg/dl (7-20) Creatinine 1.64mg/dl (0.44-1.00) Glucose Level 72mg/dl (70-220) Calcium Level 8.0mg/dl (8.4-10.2) Bedside Glucose 77mg/dL (70-220) VERNA RUIZ. Apr 21, 2017 12:34
[2017-04-21] MEDS: CEFEPIME 2GM/50 ML (PMX) 50 ML IVPB SCH (18:00)
--- NOTE | 2017-04-21 18:46 | CONS ---
Date/Time of Note Date/Time of Note DATE: 04/21/17 TIME: 18:45 Assessment/Plan Assessment/Plan Additional Assessment/Plan 1. Acute kidney injury likely secondary to acute tubular necrosis from sepsis. 2. Sepsis secondary to urinary tract infection and left basilar infiltrates. 3. Urinary tract infection with urine culture growing pseudomonas. 4. Hypertension. 5. Hyperlipidemia. 6. Rule out chronic kidney disease. PLAN: cr improved to 1.6, K 3.4, HCo3 17- s/p bicarbonate drip continue bicitra on discharge will follow up possible plan for d/c to SNF Consultation Date/Type/Reason Admit Date/Time Apr 14, 2017 at 20:34 Initial Consult Date Apr Type of Consultation: NEPHROLOGY Referring Provider: YAHAIRA CLAROS 24 HR Interval Summary Free Text/Dictation K 3.4. s/p bicarbonate drip, Now HCo3 17, afebrile no acute events Exam/Review of Systems Vital Signs Vitals Vital Signs Date Time Temp Pulse Resp B/P Pulse Ox O2 Delivery O2 Flow Rate FiO2 04/21/17 17:26 2.0 04/21/17 16:23 63 04/21/17 11:04 98.3 19 123/65 98 04/18/17 16:06 Room Air 04/18/17 01:44 21 Intake and Output 04/20/17 04/20/17 04/21/17 15:00 23:00 07:00 Intake Total 300 ml Output Total 700 ml 400 ml Balance -400 ml -400 ml Exam General: awake, no acute distress HEENT:FIORDALIZA< EOMI Neck: Supple with full range of motion. No rigidity or meningismus Chest: Nontender Lungs: less coarse breath sounds at the lower left lung field Heart: Normal S1-S2, Regular rhythm and rate. Abdomen: Soft , nontender, nondistended , bowel sounds are present. No guarding no rebound tenderness , Extremities: Normal to inspection, no edema no cyanosis Neurologic:no focal deficits Results Result Diagram: 04/21/17 0650 04/21/17 0650 Results 24 hrs Laboratory Tests Test 04/20/17 21:57 04/21/17 05:00 04/21/17 06:50 04/21/17 10:40 Bedside Glucose 105 77 Blood Gas Specimen Source Blood arterial Arterial Blood Date Drawn 04/21/2017 5:30:22 AM Arterial Blood pH (Temp corrected) 7.399 Arterial Blood pCO2 (Temp correct) 27.1 L Arterial Blood pO2 (Temp corrected) 106.5 H Arterial Blood HCO3 16.4 L Arterial Blood Base Excess -6.7 L Arterial Blood Oxygen Saturation 97.8 Jaylen Test ACCEPTAB Arterial Blood Gas Puncture Site Right Radial Arterial Blood Carboxyhemoglobin 0.2 Arterial Blood Methemoglobin 0.3 Blood Gas A-a O2 Differential 3.6 L Oxyhemoglobin Percent 97.3 Total Hemoglobin 14.9 Blood Gas Temperature 37.0 Blood Gas Modality NASAL CANNULA FiO2 20.0 Blood Gas Notified Whom MA Blood Gas Notified Time 04/21/2017 5:56:51 AM White Blood Count 11.8 H Red Blood Count 3.29 L Hemoglobin 9.5 L Hematocrit 28.2 L Mean Corpuscular Volume 85.7 Mean Corpuscular Hemoglobin 28.9 L Mean Corpuscular Hemoglobin Concent 33.7 Red Cell Distribution Width 16.4 H Platelet Count 192 Mean Platelet Volume 11.1 H Neutrophils % 90.3 H Lymphocytes % 3.8 L Monocytes % 3.4 Eosinophils % 1.3 Basophils % 0.2 Nucleated Red Blood Cells % 0.0 Neutrophils # 10.7 H Lymphocytes # 0.5 L Monocytes # 0.4 Eosinophils # 0.2 Basophils # 0.0 Nucleated Red Blood Cells # 0.0 Sodium Level 140 Potassium Level 3.4 L Chloride Level 117 H Carbon Dioxide Level 18 L Anion Gap 8 Blood Urea Nitrogen 28 H Creatinine 1.64 H Glucose Level 72 # Calcium Level 8.0 L Test 04/21/17 12:24 04/21/17 12:46 04/21/17 13:10 04/21/17 14:48 Bedside Glucose 66 L 91 92 Lab Scanned Report REFERENCE LAB Medications Medications Current Medications Ondansetron HCl (Zofran Inj) 4 mg Q6H PRN IV NAUSEA AND/OR VOMITING; Start 04/14 at 20:30 Acetaminophen (Tylenol Tab) 650 mg Q6H PRN PO PAIN LEVEL 1-3 OR FEVER; Start at 20:30 Heparin Sodium (Porcine) (Heparin (5000 Units/0.5 ml)) 5,000 unit Q8 SC Last administered on 04/21/17t 15:22; Admin Dose 5,000 UNIT; Start 04/14/17 at 22:00 Amiodarone HCl (Cordarone) 100 mg BID PO Last administered on 04/19/17 22:02; Admin Dose 100 MG; Start 04/15/17 at 09:00 Donepezil HCl (Aricept) 10 mg DAILY PO Last administered on 04/19/17 09:30; Admin Dose 10 MG; Start 04/15/17 at 09:00 Ferrous Sulfate (Ferrous Sulfate (Ec)) 325 mg TID PO Last administered on 22:04; Admin Dose 325 MG; Start 04/15/17 at 09:00 Mirtazapine (Remeron) 30 mg DAILY PO Last administered on 04/19/17 09:30; Admin Dose 30 MG; Start 04/15/17 at 09:00 Prednisone (Prednisone) 5 mg DAILY PO Last administered on 04/19/17 09:31; Admin Dose 5 MG; Start 04/15/17 at 09:00 Senna (Senokot) 2 tab BID PO Last administered on 04/19/17 22:04; Admin Dose 2 TAB; Start 04/15/17 at 09:00 Diagnostic Test (Pha) (Accu-Chek) 1 ea 02 XX ; Start 04/16/17 at 02:00 Miscellaneous Information 1 ea NOTE XX ; Start 04/15/17 at 07:00 Glucose (Glutose) 15 gm Q15M PRN PO DECREASED GLUCOSE; Start 04/15/17 at 07:00 Glucose (Glutose) 22.5 gm Q15M PRN PO DECREASED GLUCOSE; Start 04/15/17 at 07:00 Dextrose (D50w Syringe) 25 ml Q15M PRN IV DECREASED GLUCOSE Last administered on 04/21/17 12:31; Admin Dose 25 ML; Start 04/15/17 at 07:00 Dextrose (D50w Syringe) 50 ml Q15M PRN IV DECREASED GLUCOSE; Start 04/15/17 at 07:00 Glucagon (Glucagen) 1 mg Q15M PRN IM DECREASED GLUCOSE; Start 04/15/17 at 07:00 Glucose 15 gm 15 gm Q15M PRN BUCCAL DECREASED GLUCOSE; Start 04/15/17 at 07:00 Cefepime HCl (Maxipime 2gm/50 ml (Pmx)) 50 ml @ 100 mls/hr Q24H IVPB Last administered on 04/20/17 17:30; Admin Dose 100 MLS/HR; Start 04/16/17 at 18:00 Citric Acid/ Sodium Citrate (Bicitra) 30 ml BID PO Last administered on 22:00; Admin Dose 30 ML; Start 04/19/17 at 09:00 WILFRIDO GARCIA MD Apr 21, 2017 18:46
== END 2017-04-21 18:50 | DRG 871 ==
LOC: E/R 15:33 → TEL 20:34
PROVIDERS: ADMIT Family Medicine; ATTEND Family Medicine
PROC: 30253N1 (ICD-10-PCS; principal; 2017-04-18)
DX: A41.52 Sepsis due to Pseudomonas (principal); N17.0 Acute kidney failure with tubular necrosis; I21.4 Non-ST elevation (NSTEMI) myocardial infarction; J18.9 Pneumonia, unspecified organism; N39.0 Urinary tract infection, site not specified; I24.8 Other forms of acute ischemic heart disease; F03.90 Unspecified dementia, unspecified severity, without behavioral disturbance, psychotic disturbance, mood disturbance, and anxiety; I10 Essential (primary) hypertension; E11.8 Type 2 diabetes mellitus with unspecified complications; B96.5 Pseudomonas (aeruginosa) (mallei) (pseudomallei) as the cause of diseases classified elsewhere; Z66 Do not resuscitate; R65.20 Severe sepsis without septic shock; I12.9 Hypertensive chronic kidney disease with stage 1 through stage 4 chronic kidney disease, or unspecified chronic kidney disease; N18.9 Chronic kidney disease, unspecified; E03.9 Hypothyroidism, unspecified; I49.9 Cardiac arrhythmia, unspecified; I25.2 Old myocardial infarction; Z85.3 Personal history of malignant neoplasm of breast
CPT/HCPCS: 36415; 36430; 36600; 70450; 71010; 76775; 80048; 80053; 81001; 81003; 82550; 82553; 82570; 82803; 82962; 83036; 83605; 84300; 84484; 84560; 85025; 85610; 85730; 86403; 86850; 86900; 86901; 86920; 87040; 87070; 87086; 89190; 89220; 92526; 92610; 93005; 93970; 96372; 96374; 96375; 97162; C9113; J0692; J1644; J1650; J1815; J3370; J7030; J7040; J7042; J7070; J7512; P9016